=== PATIENT | male | born 1945 ===

== ENCOUNTER 2017-04-29 07:40 | Day surgery (SDC) | payer MEDICARE ==
[2017-04-20 12:04] VITALS: BMI 25.8
[2017-04-29] MEDS ORDERED: Sodium Chloride 0.9% 1,000 ML IV SCH (09:30)
[2017-04-29] MEDS ORDERED: Propofol 10 mg/ml Inj (20 ML) ONE (09:37)
[2017-04-29 11:26] VITALS: BP 124/77; PULSE 53; RESP 16; TEMP 97.6; O2SAT 99
== END 2017-04-29 12:14 | disposition home or self-care (01) ==
LOC: ENDO 07:40
PROVIDERS: ATTEND Internal Medicine Gastroenterology
DX: Z12.11 Encounter for screening for malignant neoplasm of colon (principal); D12.3 Benign neoplasm of transverse colon; K63.5 Polyp of colon; K63.89 Other specified diseases of intestine; K57.30 Diverticulosis of large intestine without perforation or abscess without bleeding
CPT/HCPCS: 45380; 88305; J2001; J2704; J7040 ×2

== ENCOUNTER 2017-08-30 10:13 | Day surgery (SDC) | payer MEDICARE ==
[2017-08-30 11:12] VITALS: BMI 26.6
[2017-08-30] MEDS ORDERED: Midazolam 2 MG/2 ML VIAL ONE ×2 (11:51→12:35)
[2017-08-30] MEDS ORDERED: Sodium Chloride 0.9% 1,000 ML IV SCH (12:00)
[2017-08-30] MEDS ORDERED: Propofol 10 mg/ml Inj (20 ML) ONE (12:35)
[2017-08-30 14:08] VITALS: BP 125/78; PULSE 52; RESP 18; TEMP 97.6; O2SAT 97
== END 2017-08-30 14:35 | disposition home or self-care (01) ==
LOC: ENDO 10:13
PROVIDERS: ATTEND Internal Medicine Gastroenterology
DX: K20.9 Esophagitis, unspecified (principal); K25.9 Gastric ulcer, unspecified as acute or chronic, without hemorrhage or perforation; R13.10 Dysphagia, unspecified; G47.33 Obstructive sleep apnea (adult) (pediatric); Z86.010 Personal history of colon polyps; K29.50 Unspecified chronic gastritis without bleeding
CPT/HCPCS: 43239; 88305; 88312; 88342; J2001; J2250; J2704; J3010; J7040 ×2

== ENCOUNTER 2018-02-21 08:46 | Day surgery (SDC) | payer MEDICARE ==
[2018-02-21] MEDS ORDERED: Propofol 10 mg/ml Inj (20 ML) ONE (10:32)
[2018-02-21 11:08] VITALS: TEMP 97.6
[2018-02-21 11:58] VITALS: BP 125/78; PULSE 53; RESP 16; O2SAT 98
== END 2018-02-21 11:32 | disposition home or self-care (01) ==
LOC: ENDO 08:46
PROVIDERS: ATTEND Internal Medicine Gastroenterology
DX: K25.9 Gastric ulcer, unspecified as acute or chronic, without hemorrhage or perforation (principal); K44.9 Diaphragmatic hernia without obstruction or gangrene; K21.0 Gastro-esophageal reflux disease with esophagitis; K29.50 Unspecified chronic gastritis without bleeding; R13.10 Dysphagia, unspecified; Z86.010 Personal history of colon polyps; G47.30 Sleep apnea, unspecified; Z90.49 Acquired absence of other specified parts of digestive tract
CPT/HCPCS: 43239; 88305; 88312; 88342; J2001; J2704; J7040

== ENCOUNTER 2018-11-09 19:42 | Inpatient (IN) | payer MEDICARE ==
[2018-11-09 19:52] VITALS: BMI 27.4
--- NOTE | 2018-11-09 20:28 | ED PDOC ---
Arrival/HPI - General Chief Complaint: GI Problem Time Seen by Provider: 11/09/18 19:46 Historian: Patient, Spouse - History of Present Illness Narrative History of Present Illness (Text): 11/09/18 20:23 73 year old male, whose past medical history includes appendectomy, presents to the emergency department with nausea and vomiting since 17:00. Patient states his last meal was lunch around noon. Patient informs he did not eat anything out of the ordinary except a new salad dressing he used. Patient also informs of some abdominal pain which started after he began to vomit. Patient informs of 5 episodes of vomiting, with the last 2 characterized as dark brown. Patient denies any dizziness, diaphoresis, chest pain, shortness of breath, fever, chills, or any other complaints. Time/Duration: 1-3 hours Symptom Onset: Gradual Symptom Course: Improving Quality: Aching Activities at Onset: Light Context: Home Past Medical History - Provider Review Nursing Documentation Reviewed: Yes - Infectious Disease Hx of Infectious Diseases: None - Tetanus Immunization Tetanus Immunization: Unknown - Cardiac Hx Pacemaker: No - Pulmonary Hx Sleep Apnea: Yes - Neurological Hx Paralysis: No - Hematological/Oncological Hx Blood Transfusions: No Hx Blood Transfusion Reaction: No - Musculoskeletal/Rheumatological Hx Musculoskeletal Disorders: Yes - Gastrointestinal Hx Gastroesophageal Reflux: Yes - Psychiatric Hx Emotional Abuse: No Hx Physical Abuse: No Hx Substance Use: No - Surgical History Hx Appendectomy: Yes Other/Comment: Reece rotator cuff. Ear surgery. Nose surgery - Anesthesia Hx Anesthesia Reactions: Yes (DIFFICULT WAKING UP AFTER DNS) Hx Malignant Hyperthermia: No - Suicidal Assessment Feels Threatened In Home Enviroment: No Family/Social History - Physician Review Nursing Documentation Reviewed: Yes Family/Social History: No Known Family HX Smoking Status: Never Smoked Hx Alcohol Use: Yes (QUIT 25 YRS AGO) Hx Substance Use: No Hx Substance Use Treatment: No Allergies/Home Meds Allergies/Adverse Reactions: Allergies caffeine Adverse Reaction (Severe, Verified 11/09/18 19:52) DIZZINESS aspirin Adverse Reaction (Intermediate, Verified 11/09/18 19:52) NAUSEA PT REPORTS THAT ASPIRIN MORE THAN 81 MG UPSETS HIS STOMACH AND CAUSES PAIN Home Medications: Home Meds Medication Instructions Recorded Confirmed RX: Pravastatin Sodium [Pravachol] 20 mg PO QPM 08/25/16 11/09/18 RX: Carboxymethylcellulose Sodium 1 drop EACHEYE BID 09/09/16 11/09/18 [Refresh Tears] RX: Multivit-Min/FA/Lycopen/Lutein 1 tab PO DAILY 09/09/16 11/09/18 [Centrum Silver Tablet] RX: Kjunn-7-Yhvp Ethyl Esters 500 mg PO DAILY 09/09/16 11/09/18 [OMEGA 3] RX: Vitamin B Complex Vit C No.4 150 mg PO DAILY 09/09/16 11/09/18 [Super B Complex] RX: Meloxicam [Mobic] 15 mg PO DAILY PRN 08/25/17 11/09/18 Omeprazole 20 mg PO DAILY 08/30/17 11/09/18 Sildenafil Citrate [Viagra] 50 mg PO Q2XW 02/16/18 11/09/18 Review of Systems - Physician Review All systems were reviewed & negative as marked: Yes - Review of Systems Constitutional: absent: Fevers, Night Sweats Respiratory: absent: SOB Cardiovascular: absent: Chest Pain Gastrointestinal: Abdominal Pain, Nausea, Vomiting Neurological: absent: Dizziness Physical Exam - Physical Exam Narrative Physical Exam (Text): 11/09/18 20:29 Gen: VS reviewed, alert, well developed, well nourished, nontoxic, mild distress Eye: EOMI, PERRL ENT: normal pharynx. Neck: no JVD, supple, no adenopathy CV: regular rate, regular rhythm, no rubs,no murmur, S1, S2 Pulm: no distress, clear to auscultation, no wheeze, no rhonchi, breath sounds equal, no rales Abd: soft, nontender, no guarding, no rebound, no rigidity Ext: no edema Skin: good color, no rash, no cyanosis Psych: responds appropriately to questions, normal affect Neuro: oriented x3, CN2-12 intact grossly, motor intact, sensation intact Vital Signs Reviewed: Yes Vital Signs Temp Pulse Resp BP Pulse Ox 11/09/18 19:58 98.3 F 80 20 136/86 96 Temperature: Afebrile Blood Pressure: Normal Pulse: Regular Respiratory Rate: Normal Appearance: Positive for: Well-Appearing, Non-Toxic, Comfortable Pain Distress: None Mental Status: Positive for: Alert and Oriented X 3 Medical Decision Making ED Course and Treatment: 11/09/18 20:30 Impression: 73 year old male presents with nausea and vomiting. Plan: -- CT ABD & Pelvis -- EKG -- CMP, Lipase, Trop -- CBC -- Chest X-ray -- Zofran -- Reassess and disposition Prior Visits: Notes and results from previous visits were reviewed. 11/09/18 23:[address] whiting to the hospitalist service. patient to be admitted for small bowel obstruction. medical advisor aware of admit vice president of human resources aware of patient's status in the ED - RAD Interpretation Narrative RAD Interpretations (Text): 11/09/18 22:42 CT Abdomen and Pelvis with IV contrast CLINICAL HISTORY: MID ABDOMINAL PAIN - VOMIT - HX: APPY TECHNIQUE: Axial computed tomography images of the abdomen and pelvis with intravenous contrast. 524.04 mGy-cm CONTRAST: With; OMNI 350 100 ml COMPARISON: Comparison is made to prior CT abdomen and pelvis examination dated 11/10/2012. FINDINGS: LUNG BASES: The lung bases appear clear. No pleural effusions are seen. LIVER: Unremarkable. GALLBLADDER AND BILE DUCTS: The gallbladder appears within normal limits. No radioopaque gallstones are seen. No biliary ductal dilatation is evident. PANCREAS: Unremarkable. SPLEEN: Unremarkable. ADRENAL GLANDS: Unremarkable. KIDNEYS, URETERS, AND BLADDER: The kidneys appear within normal limits. There is no hydronephrosis or hydroureter. No urinary calculi are seen. The urinary bladder appeared normal in size and configuration. STOMACH AND BOWEL: A 5.4 cm segment of small intestinal narrowing is seen in the right medial abdomen. This is thought compatible with a segment of stricture and represents a transition zone. There is associated small bowel fluid distention measuring up to 4.2 cm transversely proximal to the transition zone compatible with evolving mechanical small bowel obstruction. Surgical consultation could be considered. No pneumatosis intestinalis is identified. These image findings are best seen in the sagittal reconstructed series 602; specifically images #[id number]. No evidence suggesting colitis. APPENDIX: No evidence of acute appendicitis on CT examination. There is noted to have been prior appendectomy. This corresponds with the given history. PERITONEUM: No free fluid. No free air. LYMPH NODES: No lymphadenopathy is evident. REPRODUCTIVE: Unremarkable as visualized. VASCULATURE: No evidence of abdominal aortic aneurysm. BONES: No aggressive appearing osseous lesion. No acute osseous pathology evident. Disc interspace narrowing is seen at L2-3, L3-4, L4-5 compatible with degenerative disc disease. IMPRESSION: 1. Evidence of an mechanical small intestinal obstruction as described above. 2. Status post appendectomy. Pants Cutter: Radiologist - EKG Interpretation EKG Interpretation (Text): 11/09/18 21:11 Normal sinus rhythm @ 78 bpm Normal QRS normal axis Nonspecific STT wave abnormality Interpreted by ED Physician: Yes Type: 12 lead EKG - Medication Orders Current Medication Orders: Discontinued Medications Ondansetron HCl (Zofran Inj) 4 mg IVP STAT STA Stop: 11/09/18 19:53 Last Admin: 11/09/18 20:03 Dose: 4 mg IVP Administration Document 11/09/18 20:03 CNR (Rec: 11/09/18 20:03 CNR [id number]) Charges for Administration # of IVP Administrations 1 - Scribe Statement The provider has reviewed the documentation as recorded by the Scribe Deepak Blanco All medical record entries made by the Scribe were at my direction and personally dictated by me. I have reviewed the chart and agree that the record accurately reflects my personal performance of the history, physical exam, medical decision making, and the department course for this patient. I have also personally directed, reviewed, and agree with the discharge instructions and disposition. Disposition/Present on Arrival - Present on Arrival Any Indicators Present on Arrival: No History of DVT/PE: No History of Uncontrolled Diabetes: No Urinary Catheter: No History of Decub. Ulcer: No History Surgical Site Infection Following: None - Disposition Have Diagnosis and Disposition been Completed?: Yes Diagnosis: Small bowel obstruction Disposition: HOSPITALIZED Disposition Time: 23:02 Patient Plan: Admission Patient Problems: Current Active Problems Problem Status Onset Small bowel obstruction Acute Condition: STABLE Forms: [employer] (Korean)
[2018-11-09 20:44] LABS: BASO # 0.02 K/mm3 (0.0-2.0); BASO % 0.2 % (0.0-3.0); EOS # 0.2 (0.0-0.7); EOS % 1.7 % (1.5-5.0); HEMOGLOBIN 16.1 g/dL (14.0-18.0); LYMPH # 3.8 (1.2-3.4); LYMPH % 28.8 % (22.0-35.0); MEAN CELL VOLUME 87.2 fl (80.0-105.0); MEAN CORPUSCULAR HEMOGLOBIN 29.4 pg (25.0-35.0); MEAN CORPUSCULAR HGB CONC 33.8 g/dl (31.0-37.0); MONO % 7.4 % (1.0-6.0); RBC 5.47 10^6/uL (3.5-6.1); RED CELL DISTRIBUTION WIDTH 13.2 % (11.5-14.5); WHITE BLOOD COUNT 13.2 10^3/uL (4.5-11.0)
[2018-11-09 20:57] LABS: ALB/GLOB RATIO 1.2 (1.1-1.8); ALBUMIN 4.3 g/dL (3.0-4.8); ALT/SGPT 27 U/L (7-56); AST/SGOT 37 U/L (17-59); BLOOD UREA NITROGEN 21 mg/dL (7-21); CALCIUM 9.9 mg/dL (8.4-10.5); GFR NON-AFRICAN AMERICAN > 60; HDL CHOLESTEROL 42 mg/dL (29-60); LIPASE 80 U/L (23-300)
[2018-11-09 21:08] LABS: LDL CHOLESTEROL 157 mg/dL (0-129)
[2018-11-09 21:10] LABS: TROPONIN I < 0.01 ng/mL
[2018-11-09] MEDS ORDERED: Iohexol 350 MG/100 ML VIAL ONE (21:54)
[2018-11-09] MEDS ORDERED: Morphine 4 mg/ml ISec IVP STA (23:00)
[2018-11-09] MEDS ORDERED: Dextrose 5%/0.45% NS 1,000 ML IV SCH (23:00)
--- NOTE | 2018-11-09 23:41 | CP.PCM.CON ---
History of Present Illness - History of Present Illness History of Present Illness: General surgery consult note for Dr. Jacqueline Mcbride, PGY-2 Pt seen/examined at bedside. 73M w/PMH sig for diverticulosis and prior appendectomy consulted for SBO. Pt reports that he had a normal BM (normal color, caliber, consistency) and passed flatus one day prior to evaluation in AM, but has not had flatus since- which is unusual as pt usually has a lot of flatus. Pt had sudden onset of epigastric abdominal pain - non radiating, burning sensation on evening prior to evaluation. Admits to emesis x 5 at home and again in ED- large volume (nb, brown, with some streaks of blood w/last episode). Denies CP, SOB, F & C, changes in urinary habits, weakness, changes in bowel consistency, weight changes, night sweats, other complaints. In ED, WBC 13.2, CBC overall with appearance of hemoconcentration. CT scan reviewed - notable for gastric distention and air fluid levels in small bowel compatible PMH: HLD, diverticulosis PSH: Open appendectomy (2001), B/L shoulder rotator cuff surgery, ear surgery and nose surgery, last colonoscopy 2017 All: Caffeine, ASA SH: Denies ETOH, tobacco or illicit use FH: Denies hx of colon CA or other cancers PMD: Sam Oates Review of Systems - Review of Systems All systems: reviewed and no additional remarkable complaints except - Constitutional Constitutional: absent: Chills, Fever - EENT Nose/Mouth/Throat: absent: Sore Throat - Cardiovascular Cardiovascular: absent: Chest Pain - Gastrointestinal Gastrointestinal: Change in Bowel Habits, Hematemesis, Nausea, Vomiting. absent: Abdominal Pain, Belching, Bloating, Constipation, Diarrhea, Hematoche jonel, Melena - Genitourinary Genitourinary: absent: Change in Urinary Stream - Musculoskeletal Musculoskeletal: absent: Back Pain - Integumentary Integumentary: absent: Rash - Neurological Neurological: absent: Weakness - Psychiatric Psychiatric: absent: Change in Appetite Past Patient History - Infectious Disease Hx of Infectious Diseases: None - Tetanus Immunizations Tetanus Immunization: Unknown - Past Social History Smoking Status: Never Smoked - CARDIAC Hx Pacemaker: No - PULMONARY Hx Sleep Apnea: Yes - NEUROLOGICAL Hx Paralysis: No - HEMATOLOGICAL/ONCOLOGICAL Hx Blood Transfusions: No Hx Blood Transfusion Reaction: No - MUSCULOSKELETAL/RHEUMATOLOGICAL Hx Musculoskeletal Disorders: Yes - GASTROINTESTINAL Hx Gastroesophageal Reflux: Yes - PSYCHIATRIC Hx Emotional Abuse: No Hx Physical Abuse: No Hx Substance Use: No - SURGICAL HISTORY Hx Appendectomy: Yes Other/Comment: Reece rotator cuff. Ear surgery. Nose surgery - ANESTHESIA Hx Anesthesia Reactions: Yes (DIFFICULT WAKING UP AFTER DNS) Hx Malignant Hyperthermia: No Meds Allergies/Adverse Reactions: Allergies Allergy/AdvReac Type Severity Reaction Status Date / Time caffeine AdvReac Severe DIZZINESS Verified 11/09/18 19:52 aspirin AdvReac Intermediate NAUSEA Verified 11/09/18 19:52 - Medications Medications: Current Medications Dextrose/Sodium Chloride (Dextrose 5%/0.45% Ns 1000 Ml) 1,000 mls @ 100 mls/hr IV .Q10H VIKRAM Last Admin: 11/09/18 22:55 Dose: 100 mls/hr Ondansetron HCl (Zofran Inj) 4 mg IVP Q4 PRN PRN Reason: Nausea/Vomiting Physical Exam - Constitutional Appears: Non-toxic, No Acute Distress - Head Exam Head Exam: ATRAUMATIC, NORMAL INSPECTION, NORMOCEPHALIC - Eye Exam Eye Exam: EOMI, Normal appearance - ENT Exam ENT Exam: Mucous Membranes Moist, Normal Exam - Neck Exam Neck exam: Positive for: Full Rom, Normal Inspection - Respiratory Exam Respiratory Exam: NORMAL BREATHING PATTERN - Cardiovascular Exam Cardiovascular Exam: REGULAR RHYTHM, +S1, +S2 - GI/Abdominal Exam GI & Abdominal Exam: Normal Bowel Sounds, Soft. absent: Distended, Firm, Guardi ng, Tenderness Additional comments: well healed linear scar in RLQ of abdomen - Rectal Exam Rectal Exam: Deferred - Extremities Exam Extremities exam: Positive for: normal inspection - Neurological Exam Neurological exam: Alert, CN II-XII Intact, Oriented x3 - Psychiatric Exam Psychiatric exam: Normal Affect, Normal Mood - Skin Skin Exam: Dry, Intact, Normal Color, Warm Results - Vital Signs Recent Vital Signs: Last Vital Signs Temp 98.3 F 11/09/18 19:58 Pulse 68 11/09/18 22:33 Resp 15 11/09/18 22:33 BP 131/70 11/09/18 22:33 Pulse Ox 99 11/09/18 22:33 - Labs Result Diagrams: 11/09/18 20:00 11/09/18 20:00 Labs: Laboratory Results - last 24 hr 11/09/18 11/09/18 20:00 20:00 WBC 13.2 H RBC 5.47 Hgb 16.1 Hct 47.7 MCV 87.2 MCH 29.4 MCHC 33.8 RDW 13.2 Plt Count 275 MPV 9.0 Neut % (Auto) 61.9 Lymph % (Auto) 28.8 [place] % (Auto) 7.4 H Eos % (Auto) 1.7 Baso % (Auto) 0.2 Lymph # (Auto) 3.8 H [place] # (Auto) 1.0 H Eos # (Auto) 0.2 Baso # (Auto) 0.02 Absolute Neuts (auto) 8.15 H Sodium 142 Potassium 3.4 L Chloride 100 Carbon Dioxide 29 Anion Gap 17 BUN 21 Creatinine 1.1 Est GFR ( Amer) > 60 Est GFR (Non-Af Amer) > 60 Random Glucose 133 H Calcium 9.9 Total Bilirubin 0.5 AST 37 ALT 27 Alkaline Phosphatase 113 Troponin I < 0.01 Total Protein 7.9 Albumin 4.3 Globulin 3.6 Albumin/Globulin Ratio 1.2 Triglycerides 139 Cholesterol 243 H LDL Cholesterol Direct 157 H HDL Cholesterol 42 Lipase 80 Assessment & Plan - Assessment and Plan (Free Text) Assessment: 73M w/SBO Plan: NGT placed NGT w/425 cc brown gastric fluid out NGT to low intermittent suction NPO IVF Monitor for bowel function FU U/A Further care as per primary team EDMUNDO Mcbride, PGY-2 - Date & Time Date: 11/10/18 Time: 00:13
--- NOTE | 2018-11-10 00:24 | CP.PCM.HP ---
<Chaka Varela - Last Filed: 11/10/18 00:10> History of Present Illness - History of Present Illness History of Present Illness: Dr Varela [facility] Hospitalist Service 73M pmhx of HLD presents to [facility] [place] with multiple episodes of nausea and vomiting since this evening. Pt says he was eating salad with a new dressing and within a few minutes began to vomit and heave intensely. Pt could not tolerate any fluids or any more food. first few episodes of vomit consisted of his food, followed by dark fluid. Pt felt mid epigastric abdominal pain that began with the heaving. Pt denies ever having an episode like this in the past, denies having any symptoms previous to this. Pt reports an acute onset. In ED NG tube was placed, Pt tolerated the procedure and was able tot swallow water with the placement of tube. ROS: Pos+ NV, unable to tolerate foods/fluids Neg- CP, SOB, new medications, hematemesis, syncope, hx of DM, PMH: HLD PSH: Appendectomy, B/L shoulder rotator cuff surgery, ear surgery and nose surgery All: Caffeine, ASA SH: Denies ETOH, tobacco or illicit use FH: Denies hx of colon CA PMD: Sam Oates Present on Admission - Present on Admission Any Indicators Present on Admission: No Review of Systems - Review of Systems All systems: reviewed and no additional remarkable complaints except (as per HPI) Past Patient History - Infectious Disease Hx of Infectious Diseases: None - Tetanus Immunizations Tetanus Immunization: Unknown - Past Social History Smoking Status: Never Smoked - CARDIAC Hx Pacemaker: No - PULMONARY Hx Sleep Apnea: Yes - NEUROLOGICAL Hx Paralysis: No - HEMATOLOGICAL/ONCOLOGICAL Hx Blood Transfusions: No Hx Blood Transfusion Reaction: No - MUSCULOSKELETAL/RHEUMATOLOGICAL Hx Musculoskeletal Disorders: Yes - GASTROINTESTINAL Hx Gastroesophageal Reflux: Yes - PSYCHIATRIC Hx Emotional Abuse: No Hx Physical Abuse: No Hx Substance Use: No - SURGICAL HISTORY Hx Appendectomy: Yes Other/Comment: Reece rotator cuff. Ear surgery. Nose surgery - ANESTHESIA Hx Anesthesia Reactions: Yes (DIFFICULT WAKING UP AFTER DNS) Hx Malignant Hyperthermia: No Meds Allergies/Adverse Reactions: Allergies Allergy/AdvReac Type Severity Reaction Status Date / Time caffeine AdvReac Severe DIZZINESS Verified 11/09/18 19:52 aspirin AdvReac Intermediate NAUSEA Verified 11/09/18 19:52 Physical Exam - Additional Findings Additional findings: - Constitutional Appears: Non-toxic, No Acute Distress - Head Exam Head Exam: ATRAUMATIC, NORMAL INSPECTION, NORMOCEPHALIC - Eye Exam Eye Exam: EOMI, Normal appearance - ENT Exam ENT Exam: Mucous Membranes Moist, Normal Exam - Neck Exam Neck exam: Positive for: Full Rom, Normal Inspection - Respiratory Exam Respiratory Exam: NORMAL BREATHING PATTERN - Cardiovascular Exam Cardiovascular Exam: REGULAR RHYTHM, +S1, +S2 - GI/Abdominal Exam GI & Abdominal Exam: Normal Bowel Sounds, Soft. absent: Distended, Firm, Gua rding, Tenderness Additional comments: well healed linear scar in RLQ of abdomen - Rectal Exam Rectal Exam: Deferred - Extremities Exam Extremities exam: Positive for: normal inspection - Neurological Exam Neurological exam: Alert, CN II-XII Intact, Oriented x3 - Psychiatric Exam Psychiatric exam: Normal Affect, Normal Mood - Skin Skin Exam: Dry, Intact, Normal Color, Warm Results - Vital Signs Recent Vital Signs: Last Vital Signs Temp 98.3 F 11/09/18 19:58 Pulse 68 11/10/18 00:10 Resp 22 11/10/18 00:10 BP 134/76 11/10/18 00:10 Pulse Ox 95 11/10/18 00:10 - Labs Result Diagrams: 11/09/18 20:00 11/09/18 20:00 Labs: Laboratory Results - last 24 hr 11/09/18 11/09/18 20:00 20:00 WBC 13.2 H RBC 5.47 Hgb 16.1 Hct 47.7 MCV 87.2 MCH 29.4 MCHC 33.8 RDW 13.2 Plt Count 275 MPV 9.0 Neut % (Auto) 61.9 Lymph % (Auto) 28.8 [place] % (Auto) 7.4 H Eos % (Auto) 1.7 Baso % (Auto) 0.2 Lymph # (Auto) 3.8 H [place] # (Auto) 1.0 H Eos # (Auto) 0.2 Baso # (Auto) 0.02 Absolute Neuts (auto) 8.15 H Sodium 142 Potassium 3.4 L Chloride 100 Carbon Dioxide 29 Anion Gap 17 BUN 21 Creatinine 1.1 Est GFR ( Amer) > 60 Est GFR (Non-Af Amer) > 60 Random Glucose 133 H Calcium 9.9 Total Bilirubin 0.5 AST 37 ALT 27 Alkaline Phosphatase 113 Troponin I < 0.01 Total Protein 7.9 Albumin 4.3 Globulin 3.6 Albumin/Globulin Ratio 1.2 Triglycerides 139 Cholesterol 243 H LDL Cholesterol Direct 157 H HDL Cholesterol 42 Lipase 80 Assessment & Plan - Assessment and Plan (Free Text) Assessment: 73M pmhx of HLD admitted for SBO Plan: SBO -GenSx Consulted: Dr. Bartlett NG tube placed: 450cc removed with medium suction maintain with low intermittent suction -NPO -NS @ 100 -Monitor for BM and flatus -f/u AM labs Hx of HLD -hold home statin PPX NPO PTX 40 ivp <Anali Monaco - Last Filed: 11/10/18 19:04> Results - Vital Signs Recent Vital Signs: Last Vital Signs Temp 98.4 F 11/10/18 18:00 Pulse 62 11/10/18 18:00 Resp 20 11/10/18 18:00 BP 131/75 11/10/18 18:00 Pulse Ox 95 11/10/18 18:00 - Labs Result Diagrams: 11/10/18 07:15 11/10/18 07:15 Labs: Laboratory Results - last 24 hr 11/09/18 11/09/18 11/09/18 20:00 20:00 20:00 WBC 13.2 H RBC 5.47 Hgb 16.1 Hct 47.7 MCV 87.2 MCH 29.4 MCHC 33.8 RDW 13.2 Plt Count 275 MPV 9.0 Neut % (Auto) 61.9 Lymph % (Auto) 28.8 [place] % (Auto) 7.4 H Eos % (Auto) 1.7 Baso % (Auto) 0.2 Lymph # (Auto) 3.8 H [place] # (Auto) 1.0 H Eos # (Auto) 0.2 Baso # (Auto) 0.02 Absolute Neuts (auto) 8.15 H PT INR APTT Sodium 142 Potassium 3.4 L Chloride 100 Carbon Dioxide 29 Anion Gap 17 BUN 21 Creatinine 1.1 Est GFR ( Amer) > 60 Est GFR (Non-Af Amer) > 60 Random Glucose 133 H Calcium 9.9 Magnesium 2.3 H Total Bilirubin 0.5 AST 37 ALT 27 Alkaline Phosphatase 113 Troponin I < 0.01 Total Protein 7.9 Albumin 4.3 Globulin 3.6 Albumin/Globulin Ratio 1.2 Triglycerides 139 Cholesterol 243 H LDL Cholesterol Direct 157 H HDL Cholesterol 42 Lipase 80 Urine Color Urine Appearance Urine pH Ur Specific [place] Urine Protein Urine Glucose (UA) Urine Ketones Urine Blood Urine Nitrate Urine Bilirubin Urine Urobilinogen Ur Leukocyte Esterase Urine RBC Urine WBC Ur Epithelial Cells Urine Bacteria 11/10/18 11/10/18 11/10/18 03:10 07:15 07:15 WBC 7.3 D RBC 4.85 Hgb 13.9 L D Hct 42.5 MCV 87.6 MCH 28.7 MCHC 32.7 RDW 13.5 Plt Count 254 MPV 8.8 Neut % (Auto) 72.1 H Lymph % (Auto) 17.6 L [place] % (Auto) 8.7 H Eos % (Auto) 1.5 Baso % (Auto) 0.1 Lymph # (Auto) 1.3 [place] # (Auto) 0.6 Eos # (Auto) 0.1 Baso # (Auto) 0.01 Absolute Neuts (auto) 5.24 PT INR APTT Sodium 141 Potassium 3.9 Chloride 102 Carbon Dioxide 29 Anion Gap 14 BUN 20 Creatinine 1.0 Est GFR ( Amer) > 60 Est GFR (Non-Af Amer) > 60 Random Glucose 108 Calcium 9.0 Magnesium Total Bilirubin 0.5 AST 32 ALT 26 Alkaline Phosphatase 93 Troponin I Total Protein 7.0 Albumin 3.8 Globulin 3.2 Albumin/Globulin Ratio 1.2 Triglycerides Cholesterol LDL Cholesterol Direct HDL Cholesterol Lipase Urine Color Yellow Urine Appearance Clear Urine pH 8.0 Ur Specific [place] 1.010 Urine Protein Trace H Urine Glucose (UA) Negative Urine Ketones Trace H Urine Blood Negative Urine Nitrate Negative Urine Bilirubin Negative Urine Urobilinogen 0.2 Ur Leukocyte Esterase Negative Urine RBC 0 - 2 Urine WBC 0 - 2 Ur Epithelial Cells 0 - 2 Urine Bacteria None 11/10/18 07:15 WBC RBC Hgb Hct MCV MCH MCHC RDW Plt Count MPV Neut % (Auto) Lymph % (Auto) [place] % (Auto) Eos % (Auto) Baso % (Auto) Lymph # (Auto) [place] # (Auto) Eos # (Auto) Baso # (Auto) Absolute Neuts (auto) PT 12.5 INR 1.11 APTT 31.7 Sodium Potassium Chloride Carbon Dioxide Anion Gap BUN Creatinine Est GFR ( Amer) Est GFR (Non-Af Amer) Random Glucose Calcium Magnesium Total Bilirubin AST ALT Alkaline Phosphatase Troponin I Total Protein Albumin Globulin Albumin/Globulin Ratio Triglycerides Cholesterol LDL Cholesterol Direct HDL Cholesterol Lipase Urine Color Urine Appearance Urine pH Ur Specific [place] Urine Protein Urine Glucose (UA) Urine Ketones Urine Blood Urine Nitrate Urine Bilirubin Urine Urobilinogen Ur Leukocyte Esterase Urine RBC Urine WBC Ur Epithelial Cells Urine Bacteria Attending/Attestation - Attestation I have personally seen and examined this patient.: Yes I have fully participated in the care of the patient.: Yes I have reviewed all pertinent clinical information: Yes Notes (Text): 11/10/18 19:04 seen and examined. Discussed with resident. A& P as above. Mgmt per SX.
[2018-11-10] MEDS ORDERED: Influenza Vaccine 60 mcg/0.5 mL SYR (4YR UP) IM ONE (01:10)
[2018-11-10] MEDS ORDERED: Pneumococcal 23-Valent Vaccine IM ONE (01:10)
[2018-11-10] MEDS: Potassium Chloride 20 MEQ in Dextrose 5%/0.45% NS 1,000 ML IV SCH ×3 (01:35→20:25)
[2018-11-10 03:32] LABS: URINE BILIRUBIN NEGATIVE (NEGATIVE); URINE BLOOD NEGATIVE (NEGATIVE); URINE GLUCOSE (UA) NEGATIVE (NEGATIVE); URINE LEUKOCYTE ESTERASE NEGATIVE Leu/uL (NEGATIVE); URINE PROTEIN TRACE mg/dL (<30 mg/dL); URINE UROBILINOGEN 0.2 E.U./dL (<1 E.U./dL)
[2018-11-10 03:34] LABS: URINE APPEARANCE CLEAR (CLEAR); URINE COLOR YELLOW (YELLOW)
[2018-11-10 03:43] LABS: URINE EPITHELIAL CELLS 0 - 2 /hpf (0-5); URINE RBC 0 - 2 /hpf (0-2); URINE WBC 0 - 2 /hpf (0-6)
[2018-11-10 08:01] LABS: BASO # 0.01 K/mm3 (0.0-2.0); BASO % 0.1 % (0.0-3.0); EOS # 0.1 (0.0-0.7); EOS % 1.5 % (1.5-5.0); HEMOGLOBIN 13.9 g/dL (14.0-18.0); LYMPH # 1.3 (1.2-3.4); LYMPH % 17.6 % (22.0-35.0); MEAN CELL VOLUME 87.6 fl (80.0-105.0); MEAN CORPUSCULAR HEMOGLOBIN 28.7 pg (25.0-35.0); MEAN CORPUSCULAR HGB CONC 32.7 g/dl (31.0-37.0); MEAN PLATELET VOLUME 8.8 fl (7.0-11.0); MONO # 0.6 (0.1-0.6); MONO % 8.7 % (1.0-6.0); RBC 4.85 10^6/uL (3.5-6.1); RED CELL DISTRIBUTION WIDTH 13.5 % (11.5-14.5); WHITE BLOOD COUNT 7.3 10^3/uL (4.5-11.0)
[2018-11-10 08:07] LABS: INR 1.11; PARTIAL THROMBOPLASTIN TIME 31.7 Seconds (26.9-38.3); PROTHROMBIN TIME 12.5 SECONDS (9.4-12.5)
[2018-11-10 08:18] LABS: ALB/GLOB RATIO 1.2 (1.1-1.8); ALBUMIN 3.8 g/dL (3.0-4.8); ALT/SGPT 26 U/L (7-56); AST/SGOT 32 U/L (17-59); BLOOD UREA NITROGEN 20 mg/dL (7-21); GFR NON-AFRICAN AMERICAN > 60
--- NOTE | 2018-11-10 09:08 | RAD ---
Date of service: 11/09/2018 HISTORY: chest pain COMPARISON: 10/30/2016 TECHNIQUE: 1 view obtained. FINDINGS: LUNGS: No active pulmonary disease. PLEURA: No significant pleural effusion identified, no pneumothorax apparent. CARDIOVASCULAR: No aortic atherosclerotic calcification present. Mild cardiomegaly. No pulmonary vascular congestion. OSSEOUS STRUCTURES: No significant abnormalities. VISUALIZED UPPER ABDOMEN: Normal. OTHER FINDINGS: None. IMPRESSION: No active disease.
--- NOTE | 2018-11-10 09:18 | CT ---
Date of service: 11/09/2018 PROCEDURE: CT Abdomen and Pelvis with contrast HISTORY: mid abdominal pain,vomit,hx appy COMPARISON: CT abdomen and pelvis with contrast performed 11/10/12 TECHNIQUE: Contrast dose: 100 mL Omnipaque 350 IV Radiation dose: Total exam DLP = 524.04 mGy-cm. This CT exam was performed using one or more of the following dose reduction techniques: Automated exposure control, adjustment of the mA and/or kV according to patient size, and/or use of iterative reconstruction technique. FINDINGS: LOWER THORAX: No visible consolidation, pleural effusion, or pneumothorax. Small hiatal hernia/distal esophageal wall thickening. LIVER: Unremarkable. GALLBLADDER AND BILE DUCTS: Unremarkable. PANCREAS: Atrophy. SPLEEN: Unremarkable. ADRENALS: Unremarkable. KIDNEYS AND URETERS: The kidneys enhance symmetrically. No hydronephrosis or obstructing calculus identified. VASCULATURE: No aortic aneurysm. No atherosclerotic calcification or mural plaque present. BOWEL: Stomach is nondistended. Lack of oral contrast limits evaluation for bowel pathology. Dilated small bowel loops within the central abdomen with suspected stricture/transition in the right medial abdomen. APPENDIX: Surgical clips the level of the cecum consistent with prior appendectomy. Correlate with surgical history. No secondary signs of acute appendicitis. PERITONEUM: No significant free fluid. No definite free air. LYMPH NODES: No bulky adenopathy identified. BLADDER: Unremarkable. REPRODUCTIVE: The prostate gland measures approximately 3.1 x 4.9 cm. BONES: Degenerative changes. OTHER FINDINGS: None. IMPRESSION: Evidence of small-bowel obstruction with suspected stricture/transition involving segment of small bowel in the right mid abdomen as above. Preliminary impression was provided by Zadby.
--- NOTE | 2018-11-10 09:18 | RAD ---
Date of service: 11/10/2018 HISTORY: NGT placement COMPARISON: 11/09/2018 TECHNIQUE: 1 view obtained. FINDINGS: LUNGS: No active pulmonary disease. PLEURA: No significant pleural effusion identified, no pneumothorax apparent. CARDIOVASCULAR: No aortic atherosclerotic calcification present. Normal cardiac size. No pulmonary vascular congestion. OSSEOUS STRUCTURES: No significant abnormalities. VISUALIZED UPPER ABDOMEN: Normal. OTHER FINDINGS: None. IMPRESSION: Nasogastric tube in satisfactory position. No active disease
--- NOTE | 2018-11-10 09:25 | CARD ---
APPROVED REPORT Date of service: 11/09/2018 EKG Measurement Heart [id number] <Conclusion> Normal sinus rhythm Possible Left atrial enlargement Nonspecific ST abnormality Abnormal ECG
--- NOTE | 2018-11-10 10:58 | CP.PCM.CON ---
<Ambar Aguirre - Last Filed: 11/10/18 10:31> History of Present Illness - History of Present Illness History of Present Illness: Ambar Aguirre, PGY2, GI Consult Note for Dr Esposito: Reason for consult: SBO, r/o cancer CC: n/v since last evening This is a 73 year old male with PMH chronic gastritis, HLD, diverticulosis, is here for new onset of nausea, vomiting that started last evening. Patient reports that he was in his usual state of health until that time. Patient reports eating home-made chicken, salad with a new dressing, and started having emesis (initially food, then brown liquid). Also reports heaving, and then some bright red blood in the vomit. Denies weight loss, prior such episodes, dyspepsia, hematochezia, changes in bowel habits, dysphagia, fatigue. Prior Colonoscopy in 04/29/17 showed one tubular adenoma polyp in hepatic flexure, redundant colon, diverticulosis. EGD in 02/2018 showed chronic gastritis, negative for H pylori. In ED, patient afebrile and other vitals stable, mildly elevated wbc 13.2, CAT scan showed gastric distention with air fluid levels in small bowel, compatible with SBO. Surgery placed NGT, which drained 425 cc brown gastric fluid. NGT to low intermittent suction. Patient made NPO. Given zofran 4 mg IV x2, morphine 4 mg IV. This morning, patient reports feeling better, with additional 125 cc NGT drainage, reports improving abdominal pain, no further episodes of nausea/vomiting. Patient reports passing gas this morning, last BM yesterday morning. 12 point ROS obtained and negative, except as per HPI. PMH: chronic gastritis, HLD, diverticulosis PSH: Appendectomy, B/L shoulder rotator cuff surgery, ear surgery and nose surgery All: Caffeine, ASA SH: Denies ETOH, tobacco or illicit use FH: Denies hx of colon CA PMD: [facility] GI: Dr Esposito Review of Systems - Review of Systems All systems: reviewed and no additional remarkable complaints except Review of Systems: as per HPI Past Patient History - Infectious Disease Hx of Infectious Diseases: None - Tetanus Immunizations Tetanus Immunization: Unknown - Past Social History Smoking Status: Never Smoked - CARDIAC Hx Pacemaker: No - PULMONARY Hx Sleep Apnea: Yes - NEUROLOGICAL Hx Neurological Disorder: Yes (NEUROPATHY) - HEMATOLOGICAL/ONCOLOGICAL Hx Blood Disorders: No - MUSCULOSKELETAL/RHEUMATOLOGICAL Hx Falls: No - GASTROINTESTINAL Hx Gastroesophageal Reflux: Yes - PSYCHIATRIC Hx Emotional Abuse: No Hx Physical Abuse: No - SURGICAL HISTORY Hx Appendectomy: Yes Other/Comment: Reece rotator cuff. Ear surgery. Nose surgery - ANESTHESIA Hx Anesthesia Reactions: Yes (DIFFICULT WAKING UP AFTER DNS) Hx Malignant Hyperthermia: No Meds Allergies/Adverse Reactions: Allergies Allergy/AdvReac Type Severity Reaction Status Date / Time caffeine AdvReac Severe DIZZINESS Verified 11/09/18 19:52 aspirin AdvReac Intermediate NAUSEA Verified 11/09/18 19:52 - Medications Medications: Current Medications Potassium Chloride 20 meq/ (Dextrose/Sodium Chloride) 1,010 mls @ 125 mls/hr IV .[facility]H5M [facility] Last Admin: 11/10/18 01:35 Dose: 125 mls/hr Ondansetron HCl (Zofran Inj) 4 mg IVP Q4 PRN PRN Reason: Nausea/Vomiting Pantoprazole Sodium (Protonix Inj) 40 mg IVP DAILY [facility] Last Admin: 11/10/18 09:37 Dose: 40 mg Physical Exam - Constitutional Appears: Non-toxic, No Acute Distress - Head Exam Head Exam: ATRAUMATIC, NORMOCEPHALIC - Eye Exam Eye Exam: EOMI, PERRL. absent: Conjunctival injection, Nystagmus, Scleral icterus Pupil Exam: NORMAL ACCOMODATION, PERRL. absent: Irregular, Miosis, Unequal - ENT Exam ENT Exam: Mucous Membranes Moist - Neck Exam Neck exam: Positive for: Full Rom - Respiratory Exam Respiratory Exam: Clear to Auscultation Bilateral, NORMAL BREATHING PATTERN. absent: Accessory Muscle Use, Rhonchi, Wheezes, Respiratory Distress - Cardiovascular Exam Cardiovascular Exam: RRR, +S1, +S2. absent: Systolic Murmur - GI/Abdominal Exam GI & Abdominal Exam: Hypoactive Bowel Sounds, Soft, Tenderness (mild tenderness diffusely). absent: Distended, Firm, Guarding, Mass, Rebound, Rigid - Extremities Exam Extremities exam: Positive for: normal inspection. Negative for: calf tenderness, pedal edema - Back Exam Back exam: NORMAL INSPECTION - Neurological Exam Neurological exam: Alert, Oriented x3 - Psychiatric Exam Psychiatric exam: Normal Affect, Normal Mood - Skin Skin Exam: Dry, Normal Color, Warm Results - Vital Signs Recent Vital Signs: Last Vital Signs Temp 98.4 F 11/10/18 06:00 Pulse 69 11/10/18 06:00 Resp 18 11/10/18 06:00 BP 126/73 11/10/18 06:00 Pulse Ox 94 L 11/10/18 06:00 - Labs Result Diagrams: 11/10/18 07:15 11/10/18 07:15 Labs: Laboratory Results - last 24 hr 11/09/18 11/09/18 11/09/18 20:00 20:00 20:00 WBC 13.2 H RBC 5.47 Hgb 16.1 Hct 47.7 MCV 87.2 MCH 29.4 MCHC 33.8 RDW 13.2 Plt Count 275 MPV 9.0 Neut % (Auto) 61.9 Lymph % (Auto) 28.8 [place] % (Auto) 7.4 H Eos % (Auto) 1.7 Baso % (Auto) 0.2 Lymph # (Auto) 3.8 H [place] # (Auto) 1.0 H Eos # (Auto) 0.2 Baso # (Auto) 0.02 Absolute Neuts (auto) 8.15 H PT INR APTT Sodium 142 Potassium 3.4 L Chloride 100 Carbon Dioxide 29 Anion Gap 17 BUN 21 Creatinine 1.1 Est GFR ( Amer) > 60 Est GFR (Non-Af Amer) > 60 Random Glucose 133 H Calcium 9.9 Magnesium 2.3 H Total Bilirubin 0.5 AST 37 ALT 27 Alkaline Phosphatase 113 Troponin I < 0.01 Total Protein 7.9 Albumin 4.3 Globulin 3.6 Albumin/Globulin Ratio 1.2 Triglycerides 139 Cholesterol 243 H LDL Cholesterol Direct 157 H HDL Cholesterol 42 Lipase 80 Urine Color Urine Appearance Urine pH Ur Specific Dorothy Urine Protein Urine Glucose (UA) Urine Ketones Urine Blood Urine Nitrate Urine Bilirubin Urine Urobilinogen Ur Leukocyte Esterase Urine RBC Urine WBC Ur Epithelial Cells Urine Bacteria 11/10/18 11/10/18 11/10/18 03:10 07:15 07:15 WBC 7.3 D RBC 4.85 Hgb 13.9 L D Hct 42.5 MCV 87.6 MCH 28.7 MCHC 32.7 RDW 13.5 Plt Count 254 MPV 8.8 Neut % (Auto) 72.1 H Lymph % (Auto) 17.6 L [place] % (Auto) 8.7 H Eos % (Auto) 1.5 Baso % (Auto) 0.1 Lymph # (Auto) 1.3 Apache # (Auto) 0.6 Eos # (Auto) 0.1 Baso # (Auto) 0.01 Absolute Neuts (auto) 5.24 PT INR APTT Sodium 141 Potassium 3.9 Chloride 102 Carbon Dioxide 29 Anion Gap 14 BUN 20 Creatinine 1.0 Est GFR ( Amer) > 60 Est GFR (Non-Af Amer) > 60 Random Glucose 108 Calcium 9.0 Magnesium Total Bilirubin 0.5 AST 32 ALT 26 Alkaline Phosphatase 93 Troponin I Total Protein 7.0 Albumin 3.8 Globulin 3.2 Albumin/Globulin Ratio 1.2 Triglycerides Cholesterol LDL Cholesterol Direct HDL Cholesterol Lipase Urine Color Yellow Urine Appearance Clear Urine pH 8.0 Ur Specific Dorothy 1.010 Urine Protein Trace H Urine Glucose (UA) Negative Urine Ketones Trace H Urine Blood Negative Urine Nitrate Negative Urine Bilirubin Negative Urine Urobilinogen 0.2 Ur Leukocyte Esterase Negative Urine RBC 0 - 2 Urine WBC 0 - 2 Ur Epithelial Cells 0 - 2 Urine Bacteria None 11/10/18 07:15 WBC RBC Hgb Hct MCV MCH MCHC RDW Plt Count MPV Neut % (Auto) Lymph % (Auto) [place] % (Auto) Eos % (Auto) Baso % (Auto) Lymph # (Auto) [place] # (Auto) Eos # (Auto) Baso # (Auto) Absolute Neuts (auto) PT 12.5 INR 1.11 APTT 31.7 Sodium Potassium Chloride Carbon Dioxide Anion Gap BUN Creatinine Est GFR ( Amer) Est GFR (Non-Af Amer) Random Glucose Calcium Magnesium Total Bilirubin AST ALT Alkaline Phosphatase Troponin I Total Protein Albumin Globulin Albumin/Globulin Ratio Triglycerides Cholesterol LDL Cholesterol Direct HDL Cholesterol Lipase Urine Color Urine Appearance Urine pH Ur Specific Dorothy Urine Protein Urine Glucose (UA) Urine Ketones Urine Blood Urine Nitrate Urine Bilirubin Urine Urobilinogen Ur Leukocyte Esterase Urine RBC Urine WBC Ur Epithelial Cells Urine Bacteria Assessment & Plan - Assessment and Plan (Free Text) Assessment: # Partial SBO, 2/2 likely adhesions from prior abdominal surgery (appendectomy) # Acute nausea/vomiting 2/2 likely gastroenteritis # HLD # Diverticulosis - Colonoscopy 04/29/17 showed one tubular adenoma polyp in hepatic flexure, redundant colon, diverticulosis. EGD 02/2018 showed chronic gastritis, negative for H pylori. - on CLD as per surgery. Advance diet as tolerated. - continue with protonix - continue with IVF - Follow up outpatient with GI after acute SBO resolves, for any necessary procedures. - No acute endoscopic procedures necessary. - Further recs per Dr Esposito. Case seen and discussed with Dr Esposito. <Rupert Esposito V - Last Filed: 11/10/18 21:39> Meds - Medications Medications: Current Medications Potassium Chloride 20 meq/ (Dextrose/Sodium Chloride) 1,010 mls @ 125 mls/hr IV .Q8H5M [facility] Last Admin: 11/10/18 20:25 Dose: 125 mls/hr Ondansetron HCl (Zofran Inj) 4 mg IVP Q4 PRN PRN Reason: Nausea/Vomiting Pantoprazole Sodium (Protonix Inj) 40 mg IVP DAILY [facility] Last Admin: 11/10/18 09:37 Dose: 40 mg Results - Vital Signs Recent Vital Signs: Last Vital Signs Temp 98.4 F 11/10/18 18:00 Pulse 62 11/10/18 18:00 Resp 20 11/10/18 18:00 BP 131/75 11/10/18 18:00 Pulse Ox 95 11/10/18 18:00 - Labs Result Diagrams: 11/10/18 07:15 11/10/18 07:15 Labs: Laboratory Results - last 24 hr 11/09/18 11/10/18 11/10/18 20:00 03:10 07:15 WBC 7.3 D RBC 4.85 Hgb 13.9 L D Hct 42.5 MCV 87.6 MCH 28.7 MCHC 32.7 RDW 13.5 Plt Count 254 MPV 8.8 Neut % (Auto) 72.1 H Lymph % (Auto) 17.6 L [place] % (Auto) 8.7 H Eos % (Auto) 1.5 Baso % (Auto) 0.1 Lymph # (Auto) 1.3 [place] # (Auto) 0.6 Eos # (Auto) 0.1 Baso # (Auto) 0.01 Absolute Neuts (auto) 5.24 PT INR APTT Sodium Potassium Chloride Carbon Dioxide Anion Gap BUN Creatinine Est GFR ( Amer) Est GFR (Non-Af Amer) Random Glucose Calcium Magnesium 2.3 H Total Bilirubin AST ALT Alkaline Phosphatase Total Protein Albumin Globulin Albumin/Globulin Ratio Urine Color Yellow Urine Appearance Clear Urine pH 8.0 Ur Specific Dorothy 1.010 Urine Protein Trace H Urine Glucose (UA) Negative Urine Ketones Trace H Urine Blood Negative Urine Nitrate Negative Urine Bilirubin Negative Urine Urobilinogen 0.2 Ur Leukocyte Esterase Negative Urine RBC 0 - 2 Urine WBC 0 - 2 Ur Epithelial Cells 0 - 2 Urine Bacteria None 11/10/18 11/10/18 07:15 07:15 WBC RBC Hgb Hct MCV MCH MCHC RDW Plt Count MPV Neut % (Auto) Lymph % (Auto) [place] % (Auto) Eos % (Auto) Baso % (Auto) Lymph # (Auto) [place] # (Auto) Eos # (Auto) Baso # (Auto) Absolute Neuts (auto) PT 12.5 INR 1.11 APTT 31.7 Sodium 141 Potassium 3.9 Chloride 102 Carbon Dioxide 29 Anion Gap 14 BUN 20 Creatinine 1.0 Est GFR ( Amer) > 60 Est GFR (Non-Af Amer) > 60 Random Glucose 108 Calcium 9.0 Magnesium Total Bilirubin 0.5 AST 32 ALT 26 Alkaline Phosphatase 93 Total Protein 7.0 Albumin 3.8 Globulin 3.2 Albumin/Globulin Ratio 1.2 Urine Color Urine Appearance Urine pH Ur Specific Dorothy Urine Protein Urine Glucose (UA) Urine Ketones Urine Blood Urine Nitrate Urine Bilirubin Urine Urobilinogen Ur Leukocyte Esterase Urine RBC Urine WBC Ur Epithelial Cells Urine Bacteria Attending/Attestation - Attestation I have personally seen and examined this patient.: Yes I have fully participated in the care of the patient.: Yes I have reviewed all pertinent clinical information: Yes Notes (Text): This patient was admitted with acute onset of abdominal pain nausea and vomiting no diarrhea. She had a chicken salad in the evening he mentioned this happened after that. No similar previous episode. No other family members are affected. All ate the same dish. CT scan of abdomen and pelvis was reviewed. There is a narrowing of the medial segment on the right side was noticed. The differential diagnosis should include a ideation, history of appendectomy in the past and the ideation could contribute to SBO Other differential diagnosis should include a ischemia inflammatory ? Crohn's though less likely as patient was totally asymptomatic before this event Patient now started passing flatus. Patient is can DC the NG tube and consider starting the patient on clear liquid Patient will would need further workup. We will consider MR enterography as an outpatient based on the clinical course. 11/10/18 21:33
--- NOTE | 2018-11-10 11:26 | RAD ---
Date of service: 11/10/2018 HISTORY: sbo resolving? COMPARISON: CT 11/09/2018 TECHNIQUE: 1 view obtained. FINDINGS: BOWEL: There is a single loop of dilated small bowel in the left upper quadrant. The bowel gas pattern is otherwise unremarkable. The pattern has improved since the prior CT BONES: Normal. OTHER FINDINGS: None. IMPRESSION: There is a single loop of dilated small bowel in the left upper quadrant. The bowel gas pattern is otherwise unremarkable. The pattern has improved since the prior CT
--- NOTE | 2018-11-10 13:53 | CP.PCM.APN ---
Subjective - Date & Time of Evaluation Date of Evaluation: 11/10/18 Time of Evaluation: 10:00 - Subjective Subjective: Pt. seen and examined, no acute distress, NGT connected to low intermittent suction. Denied abdominal pain, denied nausea, vomiting. Objective - Vital Signs/Intake and Output Vital Signs (last 24 hours): Temp Pulse Resp BP Pulse Ox 98.4 F 69 18 126/73 94 L 11/10/18 06:00 11/10/18 06:00 11/10/18 06:00 11/10/18 06:00 11/10/18 06:00 Intake and Output: 11/10/18 11/10/18 06:59 18:59 Intake Total 900 Output Total 450 Balance 450 - Medications Medications: Current Medications Potassium Chloride 20 meq/ (Dextrose/Sodium Chloride) 1,010 mls @ 125 mls/hr IV .Q8H5M [facility] Last Admin: 11/10/18 12:16 Dose: 125 mls/hr Ondansetron HCl (Zofran Inj) 4 mg IVP Q4 PRN PRN Reason: Nausea/Vomiting Pantoprazole Sodium (Protonix Inj) 40 mg IVP DAILY [facility] Last Admin: 11/10/18 09:37 Dose: 40 mg - Labs Labs: 11/10/18 07:15 11/10/18 07:15 PT 12.5 SECONDS (9.4-12.5) 11/10/18 07:15 INR 1.11 11/10/18 07:15 APTT 31.7 Seconds (26.9-38.3) 11/10/18 07:15 - Constitutional Appears: Well, Non-toxic - Head Exam Head Exam: NORMOCEPHALIC - Neck Exam Neck Exam: Full ROM - Cardiovascular Exam Cardiovascular Exam: +S1, +S2 - GI/Abdominal Exam GI & Abdominal Exam: Soft Additional comments: ngt in place to low intermittent suction. - Rectal Exam Rectal Exam: Deferred - Exam Exam: absent: Circumcision, NORMAL INSPECTION, Scrotal Swelling, Testicular Tenderness, Uretheral Discharge, Testicular Vertical Lie, Bladder Distension External exam: absent: Ecchymosis, Erythema, Lacerations, Lesions, NORMAL EXTERNAL EXAM, Swelling Speculum exam: absent: Cervical Discharge, Erythema, Foreign Body, Laceration, NORMAL SPECULUM EXAM, Tissue, Vaginal Bleeding, Vaginal Discharge Bimanual exam: absent: Adenexal Mass, Adnexal, Cervical Motion Tendernes, NORMAL BIMANUAL EXAM, Uterine Enlargement, Uterine Tenderness - Extremities Exam Extremities Exam: Full ROM - Neurological Exam Neurological Exam: Alert, Awake, Oriented x3 Assessment and Plan - Assessment and Plan (Free Text) Assessment: ITS Impressions Abdomen/Pelvis CT 11/09/18 20:23 IMPRESSION: Evidence of small-bowel obstruction with suspected stricture/transition involving segment of small bowel in the right mid abdomen as above. Preliminary impression was provided by EFRAÍN Peacock. Chest X-Ray 11/10/18 00:38 IMPRESSION: Nasogastric tube in satisfactory position. No active disease Abdomen X-Ray 11/10/18 10:31 IMPRESSION: There is a single loop of dilated small bowel in the left upper quadrant. The bowel gas pattern is otherwise unremarkable. The pattern has improved since the prior CT Assessment: 73M w/PMH sig for diverticulosis and prior appendectomy , admitted with complaints of nausea, vomiting, found to have a small bowel obstruction, GI , surgery consulted. Plan: 1. Small Bowel Obstruction: NGT per GI, surgery, to be clamped, clear liquids to be started. continue IV Protonix. Advance diet per G.I. Will continue to monitor clinical status, follow closely.
[2018-11-11] MEDS: Potassium Chloride 20 MEQ in Dextrose 5%/0.45% NS 1,000 ML IV SCH (05:13)
[2018-11-11 05:49] LABS: EOS # 0.2 (0.0-0.7); EOS % 3.7 % (1.5-5.0); HEMOGLOBIN 12.2 g/dL (14.0-18.0); LYMPH % 19.3 % (22.0-35.0); MEAN CELL VOLUME 89.3 fl (80.0-105.0); MEAN CORPUSCULAR HEMOGLOBIN 28.3 pg (25.0-35.0); MEAN CORPUSCULAR HGB CONC 31.7 g/dl (31.0-37.0); MEAN PLATELET VOLUME 8.7 fl (7.0-11.0); MONO # 0.5 (0.1-0.6); MONO % 9.2 % (1.0-6.0); RBC 4.31 10^6/uL (3.5-6.1); RED CELL DISTRIBUTION WIDTH 13.3 % (11.5-14.5); WHITE BLOOD COUNT 4.9 10^3/uL (4.5-11.0)
[2018-11-11 06:00] LABS: ALB/GLOB RATIO 1.2 (1.1-1.8); ALT/SGPT 24 U/L (7-56); AST/SGOT 27 U/L (17-59); BLOOD UREA NITROGEN 13 mg/dL (7-21); CALCIUM 8.3 mg/dL (8.4-10.5); GFR NON-AFRICAN AMERICAN > 60
[2018-11-11] MEDS ORDERED: Dextrose 5%/0.45% NS 1,000 ML IV SCH (06:14)
--- NOTE | 2018-11-11 08:56 | CP.PCM.PN ---
Subjective - Date & Time of Evaluation Date of Evaluation: 11/11/18 Time of Evaluation: 08:53 - Subjective Subjective: General Surgery Dr. Bartlett Pt seen and examined @bedside. No acute events overnight. Pt has no complaints this AM. denies abd pain, fever, chills, nausea, vomiting. (+)flatus (-)BM. tolerating FLD. Objective - Vital Signs/Intake and Output Vital Signs (last 24 hours): Temp Pulse Resp BP Pulse Ox 98.4 F 62 20 131/75 95 11/10/18 18:00 11/10/18 18:00 11/10/18 18:00 11/10/18 18:00 11/10/18 18:00 Intake and Output: 11/11/18 11/11/18 06:59 18:59 Intake Total 1620 Balance 1620 - Medications Medications: Current Medications Ondansetron HCl (Zofran Inj) 4 mg IVP Q4 PRN PRN Reason: Nausea/Vomiting Pantoprazole Sodium (Protonix Inj) 40 mg IVP DAILY [facility] Last Admin: 11/10/18 09:37 Dose: 40 mg - Labs Labs: 11/11/18 05:30 11/11/18 05:30 PT 12.5 SECONDS (9.4-12.5) 11/10/18 07:15 INR 1.11 11/10/18 07:15 APTT 31.7 Seconds (26.9-38.3) 11/10/18 07:15 - Constitutional Appears: Non-toxic, No Acute Distress - Head Exam Head Exam: NORMAL INSPECTION - Eye Exam Eye Exam: Normal appearance - ENT Exam ENT Exam: Mucous Membranes Moist - Respiratory Exam Respiratory Exam: NORMAL BREATHING PATTERN. absent: Accessory Muscle Use, Respiratory Distress - Cardiovascular Exam Cardiovascular Exam: REGULAR RHYTHM. absent: Bradycardia, Tachycardia - GI/Abdominal Exam GI & Abdominal Exam: Soft. absent: Distended, Firm, Guarding, Rigid, Tenderness, Rebound - Extremities Exam Extremities Exam: Normal Inspection - Neurological Exam Neurological Exam: Alert, Awake, Oriented x3 - Psychiatric Exam Psychiatric exam: Normal Affect, Normal Mood - Skin Skin Exam: Dry, Intact, Normal Color, Warm Assessment and Plan - Assessment and Plan (Free Text) Assessment: 73 y/o M w/ improving SBO Plan: - cont FLD - monitor bowel fxn - possible diet advancement today pending BM - cont medical management - DVT PPx - encourage OOB to chair/Amb Pt discussed w/ Dr. Dhruv Bowles PGY3
--- NOTE | 2018-11-11 10:04 | CP.PCM.PN ---
<Jethro Roberts - Last Filed: 11/11/18 09:59> Subjective - Date & Time of Evaluation Date of Evaluation: 11/11/18 Time of Evaluation: 09:59 - Subjective Subjective: Jethro Roberts, PGY-1, Cardiology Progress Note for Dr. Rodrigez Patient seen and evaluated at bedside. Patient had no acute overnight events. Patient reports passing flatus but has still been constipation since last . Patient denies nausea and has been tolerating his liquid diet well. Patient denies any other symptoms at this time. 12-point ROS was unremarkable except for what was mentioned above. Objective - Vital Signs/Intake and Output Vital Signs (last 24 hours): Temp Pulse Resp BP Pulse Ox 98.5 F 59 L 18 126/71 93 L 11/11/18 09:09 11/11/18 09:09 11/11/18 09:09 11/11/18 09:09 11/11/18 09:09 Intake and Output: 11/11/18 11/11/18 06:59 18:59 Intake Total 1620 Balance 1620 - Medications Medications: Current Medications Ondansetron HCl (Zofran Inj) 4 mg IVP Q4 PRN PRN Reason: Nausea/Vomiting Pantoprazole Sodium (Protonix Inj) 40 mg IVP DAILY [facility] Last Admin: 11/11/18 09:31 Dose: 40 mg - Labs Labs: 11/11/18 05:30 11/11/18 05:30 PT 12.5 SECONDS (9.4-12.5) 11/10/18 07:15 INR 1.11 11/10/18 07:15 APTT 31.7 Seconds (26.9-38.3) 11/10/18 07:15 - Constitutional Appears: Well, Non-toxic, No Acute Distress - Head Exam Head Exam: ATRAUMATIC, NORMAL INSPECTION, NORMOCEPHALIC - Eye Exam Eye Exam: EOMI, PERRL - ENT Exam ENT Exam: Mucous Membranes Moist - Respiratory Exam Respiratory Exam: Clear to Ausculation Bilateral, NORMAL BREATHING PATTERN - Cardiovascular Exam Cardiovascular Exam: REGULAR RHYTHM, RRR - GI/Abdominal Exam GI & Abdominal Exam: Soft, Normal Bowel Sounds. absent: Tenderness - Extremities Exam Extremities Exam: Full ROM - Neurological Exam Neurological Exam: Alert, Awake, CN II-XII Intact, Oriented x3 - Skin Skin Exam: Dry, Intact Assessment and Plan - Assessment and Plan (Free Text) Assessment: 73 year old male with past medical history of hyperlipidemia presents with small bowel obstruction. Plan: Small bowel obstruction -Status post chicken salad consumption -History of appendectomy -Abdominal CT: small bowel obstruction with suspected stricture/transition involving segment of small bowel in the right mid abdomen -Last abdominal X ray showed single loop of dilated small bowel in the left uppe r quadrant -Currently on FLD -Will progress diet as tolerated and as per surgery recs. -NS at 100 cc/hr -Continue with protonix daily and zofran PRN -As per GI, will consider MR enterography as outpatient -GI, Dr. Esposito, consulted -General surgery, Dr. Bartlett consulted Hyperlipidemia -Continue with pravastatin and [id number]-9-[id number] palomo GI prophylaxis: protonix 40 mg daily DVT prophylaxis: SCD Patient seen and evaluated at bedside. <Dimas Rodrigez - Last Filed: 11/11/18 16:14> Objective - Vital Signs/Intake and Output Vital Signs (last 24 hours): Temp Pulse Resp BP Pulse Ox 98.5 F 59 L 18 126/71 93 L 11/11/18 09:09 11/11/18 09:09 11/11/18 09:09 11/11/18 09:09 11/11/18 09:09 Intake and Output: 11/11/18 11/11/18 06:59 18:59 Intake Total 1620 Balance 1620 - Medications Medications: Current Medications Atorvastatin Calcium (Lipitor) 10 mg PO DIN [facility] Irtew-8-Iify Ethyl Esters 500 Mg ( Homemed) 500 mg PO DAILY [facility] Ondansetron HCl (Zofran Inj) 4 mg IVP Q4 PRN PRN Reason: Nausea/Vomiting Pantoprazole Sodium (Protonix Inj) 40 mg IVP DAILY [facility] Last Admin: 11/11/18 09:31 Dose: 40 mg - Labs Labs: 11/11/18 05:30 11/11/18 05:30 PT 12.5 SECONDS (9.4-12.5) 11/10/18 07:15 INR 1.11 11/10/18 07:15 APTT 31.7 Seconds (26.9-38.3) 11/10/18 07:15 Attending/Attestation - Attestation I have personally seen and examined this patient.: Yes I have fully participated in the care of the patient.: Yes I have reviewed all pertinent clinical information, including history, physical exam and plan: Yes Notes (Text): 11/11/18 16:10 Patient was seen and examined with medical transcription editor. 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 Patient is improving,NGT is discontinued, advancing diet. Plan to DC if able to tolerate low residual food and cleared by Surgery. Patient will need outpatient follow up with GI after acute SBO resolves, for any necessary procedures. May benefit from MR Enteroscopy to rule-out small bowel mass or stricture. Management plan was discussed in detail with patient. Education was provided.
--- NOTE | 2018-11-11 14:29 | CP.PCM.PN ---
<Dhruv Burch - Last Filed: 11/11/18 14:30> Subjective - Date & Time of Evaluation Date of Evaluation: 11/11/18 Time of Evaluation: 14:28 - Subjective Subjective: +BM today. No complaints of abdominal pain, nausea vomiting. NO acute changes. No fevers. Objective - Vital Signs/Intake and Output Vital Signs (last 24 hours): Temp Pulse Resp BP Pulse Ox 98.5 F 59 L 18 126/71 93 L 11/11/18 09:09 11/11/18 09:09 11/11/18 09:09 11/11/18 09:09 11/11/18 09:09 Intake and Output: 11/11/18 11/11/18 06:59 18:59 Intake Total 1620 Balance 1620 - Medications Medications: Current Medications Atorvastatin Calcium (Lipitor) 10 mg PO DIN [facility] Fvats-3-Iiah Ethyl Esters 500 Mg ( Homemed) 500 mg PO DAILY [facility] Ondansetron HCl (Zofran Inj) 4 mg IVP Q4 PRN PRN Reason: Nausea/Vomiting Pantoprazole Sodium (Protonix Inj) 40 mg IVP DAILY [facility] Last Admin: 11/11/18 09:31 Dose: 40 mg - Labs Labs: 11/11/18 05:30 11/11/18 05:30 PT 12.5 SECONDS (9.4-12.5) 11/10/18 07:15 INR 1.11 11/10/18 07:15 APTT 31.7 Seconds (26.9-38.3) 11/10/18 07:15 - Constitutional Appears: Non-toxic, No Acute Distress - Respiratory Exam Respiratory Exam: Clear to Ausculation Bilateral, NORMAL BREATHING PATTERN - Cardiovascular Exam Cardiovascular Exam: REGULAR RHYTHM, +S1, +S2 - GI/Abdominal Exam GI & Abdominal Exam: Soft, Normal Bowel Sounds. absent: Tenderness - Neurological Exam Neurological Exam: Alert, Awake, CN II-XII Intact Assessment and Plan - Assessment and Plan (Free Text) Assessment: # Partial SBO # HLD # Diverticulosis - Colonoscopy 04/29/17 showed one tubular adenoma polyp in hepatic flexure, redundant colon, diverticulosis. EGD 02/2018 showed chronic gastritis, negative for H pylori. - Start low residue diet. - continue with protonix - Follow up outpatient with GI after acute SBO resolves, for any necessary procedures. May benefit from MR Enteroscopy to rule-out small bowel mass vs stricture. - OK to D/C from GI perspective. Case seen and discussed with Dr Esposito. <Rupert Esposito V - Last Filed: 11/11/18 16:42> Objective - Vital Signs/Intake and Output Vital Signs (last 24 hours): Temp Pulse Resp BP Pulse Ox 98.2 F 55 L 19 132/72 98 11/11/18 16:25 11/11/18 16:25 11/11/18 16:25 11/11/18 16:25 11/11/18 16:25 Intake and Output: 11/11/18 11/11/18 06:59 18:59 Intake Total 1620 Balance 1620 - Medications Medications: Current Medications Atorvastatin Calcium (Lipitor) 10 mg PO DIN [facility] Pvoyl-3-Luvg Ethyl Esters 500 Mg ( Homemed) 500 mg PO DAILY [facility] Ondansetron HCl (Zofran Inj) 4 mg IVP Q4 PRN PRN Reason: Nausea/Vomiting Pantoprazole Sodium (Protonix Inj) 40 mg IVP DAILY [facility] Last Admin: 11/11/18 09:31 Dose: 40 mg - Labs Labs: 11/11/18 05:30 11/11/18 05:30 PT 12.5 SECONDS (9.4-12.5) 11/10/18 07:15 INR 1.11 11/10/18 07:15 APTT 31.7 Seconds (26.9-38.3) 11/10/18 07:15 Attending/Attestation - Attestation I have personally seen and examined this patient.: Yes I have fully participated in the care of the patient.: Yes I have reviewed all pertinent clinical information, including history, physical exam and plan: Yes Notes (Text): This is an addendum to the GI progress report dictated by the GI fellow. The patient was seen and evaluated along with the fellow earlier today. Patient family were at bedside. Tolerating diet. No complaints of abdominal pain. Patient did have significant small bowel obstruction with focal point of transition. Etiology unclear. Patient did have an appendicectomy. Ideation could be a differential diagnosis however pain need to rule out other etiology including small bowel lesions stricture has to be considered he would benefit from elective MR enterography to further evaluate. Patient was meanwhile advised to low residue soft diet. If the patient has had recurrence of symptoms meanwhile would require laparoscopy evaluation 11/11/18 16:40
--- NOTE | 2018-11-12 06:24 | CP.PCM.PN ---
Subjective - Date & Time of Evaluation Date of Evaluation: 11/12/18 Time of Evaluation: 06:20 - Subjective Subjective: General Surgery Dr. Bartlett Pt seen and exained @bedside. No acute events overnight. Pt has no complaints this AM. denies abd pain, N/V, D/C. tolerating low residue diet. (+)Flatus (+)BM x1 after dulcolax OK. Objective - Vital Signs/Intake and Output Vital Signs (last 24 hours): Temp Pulse Resp BP Pulse Ox 98.2 F 55 L 19 132/72 98 11/11/18 16:25 11/11/18 16:25 11/11/18 16:25 11/11/18 16:25 11/11/18 16:25 - Medications Medications: Current Medications Atorvastatin Calcium (Lipitor) 10 mg PO DIN [facility] Last Admin: 11/11/18 18:26 Dose: Not Given Jvxkl-8-Zkyi Ethyl Esters 500 Mg ( Homemed) 500 mg PO DAILY [facility] Ondansetron HCl (Zofran Inj) 4 mg IVP Q4 PRN PRN Reason: Nausea/Vomiting Pantoprazole Sodium (Protonix Inj) 40 mg IVP DAILY [facility] Last Admin: 11/11/18 09:31 Dose: 40 mg - Labs Labs: 11/11/18 05:30 11/11/18 05:30 PT 12.5 SECONDS (9.4-12.5) 11/10/18 07:15 INR 1.11 11/10/18 07:15 APTT 31.7 Seconds (26.9-38.3) 11/10/18 07:15 - Constitutional Appears: Non-toxic, No Acute Distress - Head Exam Head Exam: NORMAL INSPECTION - Eye Exam Eye Exam: Normal appearance - ENT Exam ENT Exam: Mucous Membranes Moist - Respiratory Exam Respiratory Exam: NORMAL BREATHING PATTERN. absent: Accessory Muscle Use, Respiratory Distress - Cardiovascular Exam Cardiovascular Exam: absent: Bradycardia, Tachycardia - GI/Abdominal Exam GI & Abdominal Exam: Soft. absent: Distended, Firm, Guarding, Tenderness - Extremities Exam Extremities Exam: Normal Inspection - Neurological Exam Neurological Exam: Alert, Awake, Oriented x3 - Psychiatric Exam Psychiatric exam: Normal Affect, Normal Mood - Skin Skin Exam: Dry, Intact, Normal Color, Warm Assessment and Plan - Assessment and Plan (Free Text) Assessment: 73 y/o M w/ SBO, resolved Plan: - cont diet as per GI - monitor bowel fxn - encourage OOB to chair/Amb - cont medical management - DVT PPx Pt discussed w/ Dr. Dhruv Bowles PGY3
[2018-11-12 07:43] LABS: BASO # 0.01 K/mm3 (0.0-2.0); BASO % 0.2 % (0.0-3.0); EOS # 0.2 (0.0-0.7); EOS % 4.2 % (1.5-5.0); HEMOGLOBIN 13.2 g/dL (14.0-18.0); LYMPH # 1.1 (1.2-3.4); LYMPH % 23.1 % (22.0-35.0); MEAN CELL VOLUME 87.4 fl (80.0-105.0); MEAN CORPUSCULAR HEMOGLOBIN 28.6 pg (25.0-35.0); MEAN CORPUSCULAR HGB CONC 32.7 g/dl (31.0-37.0); MEAN PLATELET VOLUME 8.9 fl (7.0-11.0); MONO # 0.4 (0.1-0.6); MONO % 9.3 % (1.0-6.0); RBC 4.62 10^6/uL (3.5-6.1); RED CELL DISTRIBUTION WIDTH 13.1 % (11.5-14.5); WHITE BLOOD COUNT 4.7 10^3/uL (4.5-11.0)
[2018-11-12 08:07] VITALS: RESP 20
[2018-11-12 08:12] LABS: ALB/GLOB RATIO 1.3 (1.1-1.8); ALBUMIN 3.7 g/dL (3.0-4.8); ALT/SGPT 27 U/L (7-56); AST/SGOT 37 U/L (17-59); BLOOD UREA NITROGEN 17 mg/dL (7-21); CALCIUM 8.9 mg/dL (8.4-10.5); GFR NON-AFRICAN AMERICAN > 60
[2018-11-12] MEDS ORDERED: OMEGA ACID ETHYL ESTERS PO SCH (10:00)
--- NOTE | 2018-11-12 13:51 | CP.PCM.PN ---
<Jethro Roberts - Last Filed: 11/12/18 13:45> Subjective - Date & Time of Evaluation Date of Evaluation: 11/12/18 Time of Evaluation: 13:45 - Subjective Subjective: Jethro Roberts, PGY-1, Cardiology Progress Note for Dr. Kwon Patient seen and evaluated at bedside. Patient had no acute overnight events. Patient reports passing flatus but has still been constipation since last . Patient denies nausea and has been tolerating his diet well. Patient denies any other symptoms at this time. 12-point ROS was unremarkable except for what was mentioned above. Objective - Vital Signs/Intake and Output Vital Signs (last 24 hours): Temp Pulse Resp BP Pulse Ox 97.7 F 55 L 20 144/71 95 11/12/18 08:06 11/12/18 08:06 11/12/18 08:06 11/12/18 08:06 11/12/18 08:06 Intake and Output: 11/12/18 11/12/18 06:59 18:59 Intake Total 240 Balance 240 - Medications Medications: Current Medications Atorvastatin Calcium (Lipitor) 10 mg PO DIN [facility] Last Admin: 11/11/18 18:26 Dose: Not Given Llwgn-1-Flxv Ethyl Esters 500 Mg ( Homemed) 500 mg PO DAILY [facility] Last Admin: 11/12/18 09:45 Dose: Not Given Ondansetron HCl (Zofran Inj) 4 mg IVP Q4 PRN PRN Reason: Nausea/Vomiting Pantoprazole Sodium (Protonix Inj) 40 mg IVP DAILY [facility] Last Admin: 11/12/18 09:45 Dose: 40 mg - Labs Labs: 11/12/18 07:32 11/12/18 07:32 PT 12.5 SECONDS (9.4-12.5) 11/10/18 07:15 INR 1.11 11/10/18 07:15 APTT 31.7 Seconds (26.9-38.3) 11/10/18 07:15 - Constitutional Appears: Well, Non-toxic, No Acute Distress - Head Exam Head Exam: ATRAUMATIC, NORMAL INSPECTION, NORMOCEPHALIC - Eye Exam Eye Exam: EOMI, PERRL - ENT Exam ENT Exam: Mucous Membranes Moist - Respiratory Exam Respiratory Exam: Clear to Ausculation Bilateral, NORMAL BREATHING PATTERN - Cardiovascular Exam Cardiovascular Exam: REGULAR RHYTHM, RRR - GI/Abdominal Exam GI & Abdominal Exam: Soft, Normal Bowel Sounds, nondistended absent: Tenderness - Extremities Exam Extremities Exam: Full ROM - Neurological Exam Neurological Exam: Alert, Awake, CN II-XII Intact, Oriented x3 - Skin Skin Exam: Dry, Intact Assessment and Plan - Assessment and Plan (Free Text) Assessment: 73 year old male with past medical history of hyperlipidemia presents with small bowel obstruction. Plan: Small bowel obstruction -Status post chicken salad consumption -History of appendectomy -Abdominal CT: small bowel obstruction with suspected stricture/transition involving segment of small bowel in the right mid abdomen -Last abdominal X ray showed single loop of dilated small bowel in the left upper quadrant -Currently progressed to altered GI/Hepatic diet -Continue with protonix daily and zofran PRN -As per GI, will consider MR enterography as outpatient -Encourage OOB -Monitor for bowel movement -GI, Dr. Esposito, consulted -General surgery, Dr. Bartlett consulted Hyperlipidemia -Continue with pravastatin and xnupk-9-bdrap palomo GI prophylaxis: protonix 40 mg daily DVT prophylaxis: SCD Patient seen and evaluated at bedside with Dr. Kwon. <Maggy Kwon - Last Filed: 11/12/18 14:38> Objective - Vital Signs/Intake and Output Vital Signs (last 24 hours): Temp Pulse Resp BP Pulse Ox 97.7 F 55 L 20 144/71 95 11/12/18 08:06 11/12/18 08:06 11/12/18 08:06 11/12/18 08:06 11/12/18 08:06 Intake and Output: 11/12/18 11/12/18 06:59 18:59 Intake Total 240 Balance 240 - Medications Medications: Current Medications Atorvastatin Calcium (Lipitor) 10 mg PO DIN [facility] Last Admin: 11/11/18 18:26 Dose: Not Given Wqxkq-6-Aktc Ethyl Esters 500 Mg ( Homemed) 500 mg PO DAILY [facility] Last Admin: 11/12/18 09:45 Dose: Not Given Ondansetron HCl (Zofran Inj) 4 mg IVP Q4 PRN PRN Reason: Nausea/Vomiting Pantoprazole Sodium (Protonix Inj) 40 mg IVP DAILY [facility] Last Admin: 11/12/18 09:45 Dose: 40 mg - Labs Labs: 11/12/18 07:32 11/12/18 07:32 PT 12.5 SECONDS (9.4-12.5) 11/10/18 07:15 INR 1.11 11/10/18 07:15 APTT 31.7 Seconds (26.9-38.3) 11/10/18 07:15 Attending/Attestation - Attestation I have personally seen and examined this patient.: Yes I have fully participated in the care of the patient.: Yes I have reviewed all pertinent clinical information, including history, physical exam and plan: Yes Notes (Text): 11/12/18 14:33 73 year old male with past medical history of dyslipidemia, diverticulosis, and gastritis who presented with abdominal pain. He was found to have evidence of small bowel obstruction on CT scan. He was NPO with iv fluids. NGT was placed. His symptoms improved and NGT was discontinued. Diet was advanced which he is tolerating. Patient is passing flatus but denies BM. GI and surgery are following. D/c planning once patient is having bowel movements as per surgery. Patient will need outpatient GI follow up / MR enteroscopy upon discharge. Maggy Kwon MD Hospitalist.
--- NOTE | 2018-11-12 16:13 | CP.PCM.PN ---
Subjective - Date & Time of Evaluation Date of Evaluation: 11/12/18 Time of Evaluation: 16:11 - Subjective Subjective: No changes. +BM yesterday. Denies abdominal pain. +Passing flatus regularly. Objective - Vital Signs/Intake and Output Vital Signs (last 24 hours): Temp Pulse Resp BP Pulse Ox 97.7 F 55 L 20 144/71 95 11/12/18 08:06 11/12/18 08:06 11/12/18 08:06 11/12/18 08:06 11/12/18 08:06 Intake and Output: 11/12/18 11/12/18 06:59 18:59 Intake Total 240 Balance 240 - Medications Medications: Current Medications Atorvastatin Calcium (Lipitor) 10 mg PO DIN [facility] Last Admin: 11/11/18 18:26 Dose: Not Given Gwcwu-1-Ksit Ethyl Esters 500 Mg ( Homemed) 500 mg PO DAILY [facility] Last Admin: 11/12/18 09:45 Dose: Not Given Ondansetron HCl (Zofran Inj) 4 mg IVP Q4 PRN PRN Reason: Nausea/Vomiting Pantoprazole Sodium (Protonix Inj) 40 mg IVP DAILY [facility] Last Admin: 11/12/18 09:45 Dose: 40 mg - Labs Labs: 11/12/18 07:32 11/12/18 07:32 PT 12.5 SECONDS (9.4-12.5) 11/10/18 07:15 INR 1.11 11/10/18 07:15 APTT 31.7 Seconds (26.9-38.3) 11/10/18 07:15 - Constitutional Appears: Non-toxic, No Acute Distress - Eye Exam Eye Exam: EOMI, Normal appearance - Respiratory Exam Respiratory Exam: Clear to Ausculation Bilateral, NORMAL BREATHING PATTERN - Cardiovascular Exam Cardiovascular Exam: REGULAR RHYTHM, +S1, +S2 - GI/Abdominal Exam GI & Abdominal Exam: Soft, Normal Bowel Sounds. absent: Tenderness - Neurological Exam Neurological Exam: Alert, Awake, CN II-XII Intact - Psychiatric Exam Psychiatric exam: Normal Affect, Normal Mood - Skin Skin Exam: Dry, Warm Assessment and Plan - Assessment and Plan (Free Text) Assessment: # Partial SBO # HLD # Diverticulosis - Colonoscopy 04/29/17 showed one tubular adenoma polyp in hepatic flexure, redundant colon, diverticulosis. EGD 02/2018 showed chronic gastritis, negative for H pylori. - Start low residue diet. - continue with protonix - Follow up outpatient with GI. May benefit from MR Enteroscopy to rule-out small bowel mass vs stricture. - OK to D/C from GI perspective. Case seen and discussed with Dr Esposito.
[2018-11-12 16:42] VITALS: BP 144/83; PULSE 58; TEMP 97.9; O2SAT 96
--- NOTE | 2018-11-12 16:57 | CP.PCM.DIS ---
<JeanUvaldo R - Last Filed: 11/12/18 16:55> Provider - Provider Date of Admission: 11/09/18 23:00 Attending physician: Maggy Kwon MD Primary care physician: PMD: Sam Oates Consults: 11/09/18 23:11 General Surgery Consult Routine Comment: Consulting Provider: Kevin Bartlett Consulting Physician: Kevin Bartlett Reason for Consult: small bowel obstruction 11/10/18 00:56 Social Work Referral Routine Comment: LETY SCORE 7 Physician Instructions: Reason For Exam: PROTOCOL 11/10/18 07:21 Gastroenterology Consult Routine Comment: Consulting Provider: Rupert Esposito V Consulting Physician: Rupert Esposito V Reason for Consult: SBO r/o cancer Time Spent in preparation of Discharge (in minutes): 33 Diagnosis - Discharge Diagnosis (1) Small bowel obstruction Status: Resolved Priority: High Hospital Course - Lab Results Lab Results: Most Recent Lab Values WBC 4.7 10^3/uL (4.5-11.0) 11/12/18 07:32 RBC 4.62 10^6/uL (3.5-6.1) 11/12/18 07:32 Hgb 13.2 g/dL (14.0-18.0) L 11/12/18 07:32 Hct 40.4 % (42.0-52.0) L 11/12/18 07:32 MCV 87.4 fl (80.0-105.0) 11/12/18 07:32 MCH 28.6 pg (25.0-35.0) 11/12/18 07:32 MCHC 32.7 g/dl (31.0-37.0) 11/12/18 07:32 RDW 13.1 % (11.5-14.5) 11/12/18 07:32 Plt Count 215 10^3/uL (120.0-450.0) 11/12/18 07:32 MPV 8.9 fl (7.0-11.0) 11/12/18 07:32 Neut % (Auto) 63.2 % (50.0-68.0) 11/12/18 07:32 Lymph % (Auto) 23.1 % (22.0-35.0) 11/12/18 07:32 Izard % (Auto) 9.3 % (1.0-6.0) H 11/12/18 07:32 Eos % (Auto) 4.2 % (1.5-5.0) 11/12/18 07:32 Baso % (Auto) 0.2 % (0.0-3.0) 11/12/18 07:32 Lymph # (Auto) 1.1 (1.2-3.4) L 11/12/18 07:32 Izard # (Auto) 0.4 (0.1-0.6) 11/12/18 07:32 Eos # (Auto) 0.2 (0.0-0.7) 11/12/18 07:32 Baso # (Auto) 0.01 K/mm3 (0.0-2.0) 11/12/18 07:32 Absolute Neuts (auto) 2.98 (1.4-6.5) 11/12/18 07:32 PT 12.5 SECONDS (9.4-12.5) 11/10/18 07:15 INR 1.11 11/10/18 07:15 APTT 31.7 Seconds (26.9-38.3) 11/10/18 07:15 Sodium 140 mmol/L (132-148) 11/12/18 07:32 Potassium 4.1 mmol/L (3.6-5.0) 11/12/18 07:32 Chloride 106 mmol/L (98-107) 11/12/18 07:32 Carbon Dioxide 28 mmol/L (21-33) 11/12/18 07:32 Anion Gap 10 (10-20) 11/12/18 07:32 BUN 17 mg/dL (7-21) 11/12/18 07:32 Creatinine 1.0 mg/dl (0.8-1.5) 11/12/18 07:32 Est GFR ( Amer) > 60 11/12/18 07:32 Est GFR (Non-Af Amer) > 60 11/12/18 07:32 Random Glucose 91 mg/dL (70-110) 11/12/18 07:32 Calcium 8.9 mg/dL (8.4-10.5) 11/12/18 07:32 Magnesium 2.3 mg/dL (1.7-2.2) H 11/09/18 20:00 Total Bilirubin 0.4 mg/dL (0.2-1.3) 11/12/18 07:32 AST 37 U/L (17-59) 11/12/18 07:32 ALT 27 U/L (7-56) 11/12/18 07:32 Alkaline Phosphatase 86 U/L (38-126) 11/12/18 07:32 Troponin I < 0.01 ng/mL 11/09/18 20:00 Total Protein 6.5 g/dL (5.8-8.3) 11/12/18 07:32 Albumin 3.7 g/dL (3.0-4.8) 11/12/18 07:32 Globulin 2.8 gm/dL 11/12/18 07:32 Albumin/Globulin Ratio 1.3 (1.1-1.8) 11/12/18 07:32 Triglycerides 139 mg/dL (35-160) 11/09/18 20:00 Cholesterol 243 mg/dL (130-200) H 11/09/18 20:00 LDL Cholesterol Direct 157 mg/dL (0-129) H 11/09/18 20:00 HDL Cholesterol 42 mg/dL (29-60) 11/09/18 20:00 Lipase 80 U/L (23-300) 11/09/18 20:00 Urine Color Yellow (YELLOW) 11/10/18 03:10 Urine Appearance Clear (CLEAR) 11/10/18 03:10 Urine pH 8.0 (4.7-8.0) 11/10/18 03:10 Ur Specific Dennison 1.010 (1.005-1.035) 11/10/18 03:10 Urine Protein Trace mg/dL (<30 mg/dL) H 11/10/18 03:10 Urine Glucose (UA) Negative mg/dL (NEGATIVE) 11/10/18 03:10 Urine Ketones Trace mg/dL (NEGATIVE) H 11/10/18 03:10 Urine Blood Negative (NEGATIVE) 11/10/18 03:10 Urine Nitrate Negative (NEGATIVE) 11/10/18 03:10 Urine Bilirubin Negative (NEGATIVE) 11/10/18 03:10 Urine Urobilinogen 0.2 E.U./dL (<1 E.U./dL) 11/10/18 03:10 Ur Leukocyte Esterase Negative Syed/uL (NEGATIVE) 11/10/18 03:10 Urine RBC 0 - 2 /hpf (0-2) 11/10/18 03:10 Urine WBC 0 - 2 /hpf (0-6) 11/10/18 03:10 Ur Epithelial Cells 0 - 2 /hpf (0-5) 11/10/18 03:10 Urine Bacteria None /hpf (NONE) 11/10/18 03:10 - Hospital Course Hospital Course: 73M pmhx of HLD presents to [facility] with multiple episodes of nausea and vomiting since this evening. Pt says he was eating salad with a new dressing and within a few minutes began to vomit and heave intensely. Pt could not tolerate any fluids or any more food. first few episodes of vomit consisted of his food, followed by dark fluid. Pt felt mid epigastric abdominal pain that began with the heaving. Pt denies ever having an episode like this in the past, denies having any symptoms previous to this. Pt reports an acute onset. In ED NG tube was placed, Pt tolerated the procedure and was able tot swallow water with the placement of tube. ROS: Pos+ NV, unable to tolerate foods/fluids Neg- CP, SOB, new medications, hematemesis, syncope, hx of DM, PMH: HLD PSH: Appendectomy, B/L shoulder rotator cuff surgery, ear surgery and nose surgery All: Caffeine, ASA SH: Denies ETOH, tobacco or illicit use FH: Denies hx of colon CA PMD: Sam Oates HOSPITAL COURSE: 73 year old male with past medical history of hyperlipidemia and appendectomy presented with multiple episodes of nausea and vomiting. Patient said he was eating salad with a new dressing and within a few minutes began to vomit and heave intensely. Pt could not tolerate any fluids or any more food. First few episodes of vomit consisted of his food, followed by dark fluid. Pt felt mid epigastric abdominal pain that began with the heaving. Pt denied ever having an episode like this in the past, denies having any symptoms previous to this. He reports his last bowel movement was on . Abdominal CT showed small bowel obstruction with suspected stricture/transition involving segment of small bowel in the right mid abdomen. NG tube was placed in emergency department. Patient was able to swallow water with placement of NG tube. Dr. Bartlett, General Surgery, was consulted who maintained medium suction of NG tube. Patient was made NPO with NS at 100 cc/hr. Tuesday morning, patient reported feeling better with an additional 125 cc of NG tube drainage, had improved abdominal pain and nausea and vomiting ceased. Patient started passing gas. Diet was progressed to clear liquid diet to full liquid and to altered GI/hepatic diet which was tolerated well. Patient has been passing gas today but has not had a bowel movement. Patient continues to be asymptomatic except for being unable to have a bowel movement. Patient finally had a bowel movement tonight. As a result, patient was found to be stable and ready for discharge. Patient was told to follow up with PCP within 7-14 days. Patient was told to take all medications as prescribed. Ptaient was told to follow up with Dr. Esposito outpatient. Patient was told to return to the emergency department if he had any new or concerning symptoms Discharge Exam - Head Exam Head Exam: NORMAL INSPECTION - Additional Findings Additional findings: - Constitutional Appears: Well, Non-toxic, No Acute Distress - Head Exam Head Exam: ATRAUMATIC, NORMAL INSPECTION, NORMOCEPHALIC - Eye Exam Eye Exam: EOMI, PERRL - ENT Exam ENT Exam: Mucous Membranes Moist - Respiratory Exam Respiratory Exam: Clear to Ausculation Bilateral, NORMAL BREATHING PATTERN - Cardiovascular Exam Cardiovascular Exam: REGULAR RHYTHM, RRR - GI/Abdominal Exam GI & Abdominal Exam: Soft, Normal Bowel Sounds, nondistended absent: Tenderness - Extremities Exam Extremities Exam: Full ROM - Neurological Exam Neurological Exam: Alert, Awake, CN II-XII Intact, Oriented x3 - Skin Skin Exam: Dry, Intact Discharge Plan - Follow Up Plan Condition: STABLE Disposition: HOME/ ROUTINE Instructions: Low Fiber Diet, Small Bowel Obstruction (DC) Additional Instructions: Please follow up with your Primary Care Doctor (Dr. Oates) within 7 days of discharge. You should follow up with your Gasteroenterologist (GI) within 1 week of discharge to follow-up on any procedures that may recommend in the outpatient setting. A referral has been provided to the GI doctor that saw you while you were hospitalized. Please continue a "Low Residue" diet until you follow-up with a GI doctor. Specifics on what this diet is can be found online. Information has also been included in your discharge packet. Your home medications were reviewed - you may resume your home medications. You stated you inconsistently take your pravastatin - please consistently take this medication as your LDL cholesterol was high. You may also resume your zantac and omeprazole as per the GI doctor. Please return to the nearest emergency department if you experience obstructive symptoms, including but not limited to, abdominal distension, nausea, vomiting, inability to pass gas or have bowel movements. Referrals: Chandana Oates MD [Staff Provider] - Rupert Esposito MD [Medical Doctor] - <Maggy Kwon - Last Filed: 11/13/18 06:41> Provider - Provider Date of Admission: 11/09/18 23:00 Attending physician: Maggy Kwon MD Consults: 11/09/18 23:11 General Surgery Consult Routine Comment: Consulting Provider: Kevin Bartlett Consulting Physician: Kevin Bartlett Reason for Consult: small bowel obstruction 11/10/18 00:56 Social Work Referral Routine Comment: LETY SCORE 7 Physician Instructions: Reason For Exam: PROTOCOL 11/10/18 07:21 Gastroenterology Consult Routine Comment: Consulting Provider: Rupert Esposito V Consulting Physician: Rupert Esposito V Reason for Consult: SBO r/o cancer Time Spent in preparation of Discharge (in minutes): 35 Hospital Course - Lab Results Lab Results: Most Recent Lab Values WBC 4.7 10^3/uL (4.5-11.0) 11/12/18 07:32 RBC 4.62 10^6/uL (3.5-6.1) 11/12/18 07:32 Hgb 13.2 g/dL (14.0-18.0) L 11/12/18 07:32 Hct 40.4 % (42.0-52.0) L 11/12/18 07:32 MCV 87.4 fl (80.0-105.0) 11/12/18 07:32 MCH 28.6 pg (25.0-35.0) 11/12/18 07:32 MCHC 32.7 g/dl (31.0-37.0) 11/12/18 07:32 RDW 13.1 % (11.5-14.5) 11/12/18 07:32 Plt Count 215 10^3/uL (120.0-450.0) 11/12/18 07:32 MPV 8.9 fl (7.0-11.0) 11/12/18 07:32 Neut % (Auto) 63.2 % (50.0-68.0) 11/12/18 07:32 Lymph % (Auto) 23.1 % (22.0-35.0) 11/12/18 07:32 Izard % (Auto) 9.3 % (1.0-6.0) H 11/12/18 07:32 Eos % (Auto) 4.2 % (1.5-5.0) 11/12/18 07:32 Baso % (Auto) 0.2 % (0.0-3.0) 11/12/18 07:32 Lymph # (Auto) 1.1 (1.2-3.4) L 11/12/18 07:32 Izard # (Auto) 0.4 (0.1-0.6) 11/12/18 07:32 Eos # (Auto) 0.2 (0.0-0.7) 11/12/18 07:32 Baso # (Auto) 0.01 K/mm3 (0.0-2.0) 11/12/18 07:32 Absolute Neuts (auto) 2.98 (1.4-6.5) 11/12/18 07:32 PT 12.5 SECONDS (9.4-12.5) 11/10/18 07:15 INR 1.11 11/10/18 07:15 APTT 31.7 Seconds (26.9-38.3) 11/10/18 07:15 Sodium 140 mmol/L (132-148) 11/12/18 07:32 Potassium 4.1 mmol/L (3.6-5.0) 11/12/18 07:32 Chloride 106 mmol/L (98-107) 11/12/18 07:32 Carbon Dioxide 28 mmol/L (21-33) 11/12/18 07:32 Anion Gap 10 (10-20) 11/12/18 07:32 BUN 17 mg/dL (7-21) 11/12/18 07:32 Creatinine 1.0 mg/dl (0.8-1.5) 11/12/18 07:32 Est GFR ( Amer) > 60 11/12/18 07:32 Est GFR (Non-Af Amer) > 60 11/12/18 07:32 Random Glucose 91 mg/dL (70-110) 11/12/18 07:32 Calcium 8.9 mg/dL (8.4-10.5) 11/12/18 07:32 Magnesium 2.3 mg/dL (1.7-2.2) H 11/09/18 20:00 Total Bilirubin 0.4 mg/dL (0.2-1.3) 11/12/18 07:32 AST 37 U/L (17-59) 11/12/18 07:32 ALT 27 U/L (7-56) 11/12/18 07:32 Alkaline Phosphatase 86 U/L (38-126) 11/12/18 07:32 Troponin I < 0.01 ng/mL 11/09/18 20:00 Total Protein 6.5 g/dL (5.8-8.3) 11/12/18 07:32 Albumin 3.7 g/dL (3.0-4.8) 11/12/18 07:32 Globulin 2.8 gm/dL 11/12/18 07:32 Albumin/Globulin Ratio 1.3 (1.1-1.8) 11/12/18 07:32 Triglycerides 139 mg/dL (35-160) 11/09/18 20:00 Cholesterol 243 mg/dL (130-200) H 11/09/18 20:00 LDL Cholesterol Direct 157 mg/dL (0-129) H 11/09/18 20:00 HDL Cholesterol 42 mg/dL (29-60) 11/09/18 20:00 Lipase 80 U/L (23-300) 11/09/18 20:00 Urine Color Yellow (YELLOW) 11/10/18 03:10 Urine Appearance Clear (CLEAR) 11/10/18 03:10 Urine pH 8.0 (4.7-8.0) 11/10/18 03:10 Ur Specific Dennison 1.010 (1.005-1.035) 11/10/18 03:10 Urine Protein Trace mg/dL (<30 mg/dL) H 11/10/18 03:10 Urine Glucose (UA) Negative mg/dL (NEGATIVE) 11/10/18 03:10 Urine Ketones Trace mg/dL (NEGATIVE) H 11/10/18 03:10 Urine Blood Negative (NEGATIVE) 11/10/18 03:10 Urine Nitrate Negative (NEGATIVE) 11/10/18 03:10 Urine Bilirubin Negative (NEGATIVE) 11/10/18 03:10 Urine Urobilinogen 0.2 E.U./dL (<1 E.U./dL) 11/10/18 03:10 Ur Leukocyte Esterase Negative Syed/uL (NEGATIVE) 11/10/18 03:10 Urine RBC 0 - 2 /hpf (0-2) 11/10/18 03:10 Urine WBC 0 - 2 /hpf (0-6) 11/10/18 03:10 Ur Epithelial Cells 0 - 2 /hpf (0-5) 11/10/18 03:10 Urine Bacteria None /hpf (NONE) 11/10/18 03:10 Attending/Attestation - Attestation I have personally seen and examined this patient.: Yes I have fully participated in the care of the patient.: Yes I have reviewed all pertinent clinical information, including history, physical exam and plan: Yes Notes (Text): 11/12/18 73 year old male with past medical history of dyslipidemia, diverticulosis, and gastritis who presented with abdominal pain. He was found to have evidence of small bowel obstruction on CT scan. He was NPO with iv fluids. NGT was placed. His symptoms improved and NGT was discontinued. Diet was advanced which he tolerated. He reported he is passing gas and also had bowel movement today. He is cleared for d/c by GI/surgery. Patient is discharged home to follow up with pmd. Follow up with GI for possible MR enteroscopy. Maggy Kwon MD Hospitalist.
== END 2018-11-12 18:25 | disposition home or self-care (01) | DRG 390 ==
LOC: ED 19:42 → ERH 23:00 → 3RNO 11-10 00:28
PROVIDERS: ADMIT Internal Medicine; ATTEND Internal Medicine
DX: K56.51 Intestinal adhesions [bands], with partial obstruction (principal); K52.9 Noninfective gastroenteritis and colitis, unspecified; K57.90 Diverticulosis of intestine, part unspecified, without perforation or abscess without bleeding; K21.9 Gastro-esophageal reflux disease without esophagitis; G47.30 Sleep apnea, unspecified; Z90.49 Acquired absence of other specified parts of digestive tract; K29.50 Unspecified chronic gastritis without bleeding; E78.5 Hyperlipidemia, unspecified; K31.89 Other diseases of stomach and duodenum; Z88.6 Allergy status to analgesic agent; Z91.018 Allergy to other foods; Z86.010 Personal history of colon polyps